=== PATIENT | female | born 1945 | race Caucasian/White ===

== ENCOUNTER 2023-05-27 09:10 | Outpatient (AMB) | payer MEDICARE, SELFPAY ==
[2023-05-27 09:15] VITALS: BP 134/70; PULSE 57; O2SAT 97; BMI 29.2
--- NOTE | 2023-05-27 09:15 | A.OFFVIS_ITS ---
Intake Vital Signs 3 05/27/23 09:15 Height 5 ft 4 in Weight 170 lb BMI 29.2 BP 134/70 Blood Pressure Location Lt brachial Position Sitting Pulse 57 Pulse Source Pulse Oximeter Pulse Oximetry (%) 97 Oxygen Delivery Method Room Air Intake Visit Reasons: Abnormal CT Chest Primary Special Education Teacher Required: No Allergies No Known Allergies Allergy (Verified 05/27/23 09:18) HPI HPI Comments 2 History of Present Illness0 Details The patient is here for pulmonary evaluation. The patient is a 77-year-old woman presenting with a CT scan of the chest. The patient is a former smoker. She smoked for many years. Initially back around 5-6 years ago the patient was participating in the lung cancer screening program at [facility]. She had multiple pulmonary nodules. I personally reviewed her CT scan from 2020. It appeared that she had small pulmonary nodules. But nothing in the left upper lobe area where the concern is now. The patient then followed up with her primary care doctor in decided to continue the CT scans elsewhere. She was then referred to the [facility]. There she did have a CT scan sometime in February 2023 which I personally reviewed. Now she has a larger 2 cm irregular nodular density in the left upper lobe area adjacent to the aortic arch. This finding was not present on her CT scan from 2020. The patient ultimately had a repeat CT scan now May 2022 which I personally reviewed as well in appears that the irregular nodular density seems to be just slightly bigger. Although I explained to her that the timeframe on 3 months sometimes is not enough time to see the significant evolution. The patient does have a family history of lung cancer in the family is her sister recently from lung cancer. In addition to that she does have a significant smoking history. Therefore, I am concerned about this irregular nodular density in the left upper lobe area. I do believe a PET scan will be necessary to better address this abnormal finding. Specially since his in a difficult location for biopsy. Is very centrally located difficult to reach with a CT-guided biopsy and also very difficult to reach with a bronchoscopy. [facility] Medical History (Updated 05/27/23 @ 16:49 by Filiberto Mojica MD) COPD (chronic obstructive pulmonary disease) Pulmonary nodule 1 cm or greater in diameter Social History (Updated 05/27/23 @ 09:23 by DIANDRA Cedeno) Patient Tobacco Use Status: Former Tobacco user Tobacco use type: Cigarette Years Smoked: 40+ Years Review of Systems Const Reports excessive sweating, Denies fever(s) and Reports night sweats ENT Reports nasal congestion Card Denies chest pain and Reports dyspnea on exertion Resp Reports cough, Reports dyspnea on exertion and Denies wheezing GI Reports no additional complaints Musc Reports no additional complaints Skin/Breast Denies rash Endo Reports excessive sweating Luis/Lymph Denies easy bruising Aller/Immun Denies wheezing Physical Exam Vital Signs: Last Vital Signs Pulse 57 05/27/23 09:15 BP 134/70 05/27/23 09:15 Pulse Ox 97 05/27/23 09:15 Oxygen Delivery Method Room Air 05/27/23 09:15 BMI result Body Mass Index 29.2 Const General: comfortable HEENT Head: Yes normocephalic Neck Neck: Yes supple Chest Chest palpation & inspection: normal inspection of the chest Resp Effort & Inspection: normal respiratory effort Auscultation: clear to auscultation bilaterally Cardio Heart sounds: S1 normal heart sound present and S2 normal heart sound present GI Palpation (GI): Soft to palpation Skin General skin exam: no rashes or lesions noted Extrem General: Yes no clubbing, cyanosis or edema Results Reviewed Results Reviewed: Assessment & Plan Assessment & Plan (1) Pulmonary nodule 1 cm or greater in diameter: Code(s): R91.1 - Solitary pulmonary nodule (2) COPD (chronic obstructive pulmonary disease): Code(s): J44.9 - Chronic obstructive pulmonary disease, unspecified Qualifiers: COPD type: emphysema Emphysema type: centrilobular Qualified Code(s): J43.2 - Centrilobular emphysema Plan PFTs at [facility] PET scan at [facility] F/U 2-3 months Orders: Orders 2 PFT pulmonary function test Today J44.9 - Chronic obstructive pulmonary disease, unspecified, R91.1 - Solitary pulmonary nodule PET CT fusion skull to thigh Today J44.9 - Chronic obstructive pulmonary disease, unspecified, R91.1 - Solitary pulmonary nodule Coding Level of Care Code New Pt Level 4 (18642) Diagnoses Pulmonary nodule 1 cm or greater in diameter R91.1 Centrilobular emphysema J43.2 COPD type: emphysema Emphysema type: centrilobular Time Spent (min) 40
== END 2023-05-27 09:53 | disposition home or self-care (01) ==
PROVIDERS: PCP Physician Assistant Medical; Visit Provider Hospitalist
DX: R91.1 Solitary pulmonary nodule (principal); J43.2 Centrilobular emphysema
CPT/HCPCS: 99204

== ENCOUNTER → 2023-05-27 09:10 | Outpatient (BNVA) | payer MEDICARE, SELFPAY | PROVIDERS: PCP Physician Assistant Medical; Visit Provider Hospitalist | DX: R91.1 Solitary pulmonary nodule (principal); J43.2 Centrilobular emphysema | CPT/HCPCS: 99202 ==

== ENCOUNTER 2023-09-26 09:56 | Outpatient (AMB) | payer MEDICARE, SELFPAY ==
[2023-09-26 10:08] VITALS: BP 126/60; PULSE 60; O2SAT 96; BMI 29.2
--- NOTE | 2023-09-26 10:08 | A.OFFVIS_ITS ---
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 The patient is a former smoker. She smoked for many years. Initially back around 5-6 years ago the patient was participating in the lung cancer screening program at [facility]. She had multiple pulmonary nodules. I personally reviewed her CT scan from 2020. It appeared that she had small pulmonary nodules. But nothing in the left upper lobe area where the concern is now. The patient then followed up with her primary care doctor in decided to continue the CT scans elsewhere. She was then referred to the [facility]. There she did have a CT scan sometime in February 2023 which I personally reviewed. Now she has a larger 2 cm irregular nodular density in the left upper lobe area adjacent to the aortic arch. This finding was not present on her CT scan from 2020. The patient ultimately had a repeat CT scan now May 2022 which I personally reviewed as well in appears that the irregular nodular density seems to be just slightly bigger. Although I explained to her that the timeframe on 3 months sometimes is not enough time to see the significant evolution. The patient does have a family history of lung cancer in the family is her sister recently from lung cancer. In addition to that she does have a significant smoking history. Therefore, I am concerned about this irregular nodular density in the left upper lobe area. I do believe a PET scan will be necessary to better address this abnormal finding. Specially since his in a difficult location for biopsy. Is very centrally located difficult to reach with a CT- guided biopsy and also very difficult to reach with a bronchoscopy. 09/26/2023 the patient is here for a pulmonary follow-up visit. The patient is otherwise doing well from a respiratory status. She did follow-up with thoracic surgery after her PET scan. She did undergo a CT-guided biopsy although it was nondiagnostic. She demonstrating chronic inflammatory changes. She was evaluated by thoracic surgery and still felt that is a tough air even as with a surgical approach. In view of the findings and the limited results in the pathology she is scheduled to undergo a repeat CT scan next week. I will plan to look at and give her a call. Otherwise she continues with current respiratory therapy. She is having some leg cramping therefore I did tell her to hold the Wixela for a week or so in order for the cramping to settle. In the meantime she is going to try some prednisone for 4 days prior to the CT scan to see if we see some improvement in the nodular density if it is an inflammatory process. [facility] Medical History (Updated 05/27/23 @ 16:49 by Filiberto Mojica MD) COPD (chronic obstructive pulmonary disease) Pulmonary nodule 1 cm or greater in diameter Social History (Updated 05/27/23 @ 09:23 by DIANDRA Cedeno) Patient Tobacco Use Status: Former Tobacco user Tobacco use type: Cigarette Years Smoked: 40+ Years Review of Systems Const Reports excessive sweating, Denies fever(s) and Reports night sweats ENT Reports nasal congestion Card Denies chest pain and Reports dyspnea on exertion Resp Reports cough, Reports dyspnea on exertion and Denies wheezing GI Reports no additional complaints Musc Reports no additional complaints Skin/Breast Denies rash Endo Reports excessive sweating Luis/Lymph Denies easy bruising Aller/Immun Denies wheezing Physical Exam Vital Signs: Last Vital Signs Pulse 60 09/26/23 10:08 BP 126/60 09/26/23 10:08 Pulse Ox 96 09/26/23 10:08 Oxygen Delivery Method Room Air 09/26/23 10:08 BMI result Body Mass Index 29.2 Const General: comfortable HEENT Head: Yes normocephalic Neck Neck: Yes supple Chest Chest palpation & inspection: normal inspection of the chest Resp Effort & Inspection: normal respiratory effort Auscultation: clear to auscultation bilaterally Cardio Heart sounds: S1 normal heart sound present and S2 normal heart sound present GI Palpation (GI): Soft to palpation Skin General skin exam: no rashes or lesions noted Extrem General: Yes no clubbing, cyanosis or edema Assessment & Plan Assessment & Plan (1) Pulmonary nodule 1 cm or greater in diameter: Code(s): R91.1 - Solitary pulmonary nodule Category: Medical (2) COPD (chronic obstructive pulmonary disease): Code(s): J44.9 - Chronic obstructive pulmonary disease, unspecified Category: Medical Qualifiers: COPD type: emphysema Emphysema type: centrilobular Qualified Code(s): J43.2 - Centrilobular emphysema Plan PFTs at [facility] PET scan at [facility] F/U 2-3 months Medications: New prednisone PO daily; Take 2 tabs daily x 4 4 days 8 tabs 0RF Coding Level of Care Code Est Pt Level 4 (94336) Diagnoses Pulmonary nodule 1 cm or greater in diameter R91.1 Centrilobular emphysema J43.2 COPD type: emphysema Emphysema type: centrilobular Time Spent (min) 17
== END 2023-09-26 10:41 | disposition home or self-care (01) ==
PROVIDERS: PCP Physician Assistant Medical; Visit Provider Hospitalist
DX: R91.1 Solitary pulmonary nodule (principal); J43.2 Centrilobular emphysema
CPT/HCPCS: 99214

== ENCOUNTER → 2023-09-26 09:56 | Outpatient (BNVA) | payer MEDICARE, SELFPAY | PROVIDERS: PCP Physician Assistant Medical; Visit Provider Hospitalist | DX: J44.9 Chronic obstructive pulmonary disease, unspecified (principal); R91.1 Solitary pulmonary nodule; J43.2 Centrilobular emphysema; Z87.891 Personal history of nicotine dependence | CPT/HCPCS: 99212 ==

== ENCOUNTER 2023-12-30 09:59 | Outpatient (AMB) | payer MEDICARE, SELFPAY ==
--- NOTE | 2023-12-30 10:15 | MHC.OFFVIS ---
Vital Signs 12/30/23 10:16 Height 5 ft 4 in Weight 172 lb BMI 29.5 BP 128/60 Blood Pressure Location Lt brachial Position Sitting Pulse 61 Pulse Source Pulse Oximeter Pulse Oximetry (%) 94 Oxygen Delivery Method Room Air Intake Visit Reasons: Pulmonary Nodule Hide Salter Required: No Allergies No Known Allergies Allergy (Verified 12/30/23 10:15) HPI Comments Details: The patient is a 78-year-old woman presenting with a CT scan of the chest. The patient is a former smoker. She smoked for many years. Initially back around 5-6 years ago the patient was participating in the lung cancer screening program at [facility]. She had multiple pulmonary nodules. I personally reviewed her CT scan from 2020. It appeared that she had small pulmonary nodules. But nothing in the left upper lobe area where the concern is now. The patient then followed up with her primary care doctor in decided to continue the CT scans elsewhere. She was then referred to the [facility]. There she did have a CT scan sometime in February 2023 which I personally reviewed. Now she has a larger 2 cm irregular nodular density in the left upper lobe area adjacent to the aortic arch. This finding was not present on her CT scan from 2020. The patient ultimately had a repeat CT scan now May 2022 which I personally reviewed as well in appears that the irregular nodular density seems to be just slightly bigger. Although I explained to her that the timeframe on 3 months sometimes is not enough time to see the significant evolution. The patient does have a family history of lung cancer in the family is her sister recently from lung cancer. In addition to that she does have a significant smoking history. Therefore, I am concerned about this irregular nodular density in the left upper lobe area. I do believe a PET scan will be necessary to better address this abnormal finding. Specially since his in a difficult location for biopsy. Is very centrally located difficult to reach with a CT-guided biopsy and also very difficult to reach with a bronchoscopy. 09/26/2023 the patient is here for a pulmonary follow-up visit. The patient is otherwise doing well from a respiratory status. She did follow-up with thoracic surgery after her PET scan. She did undergo a CT-guided biopsy although it was nondiagnostic. She demonstrating chronic inflammatory changes. She was evaluated by thoracic surgery and still felt that is a tough air even as with a surgical approach. In view of the findings and the limited results in the pathology she is scheduled to undergo a repeat CT scan next week. I will plan to look at and give her a call. Otherwise she continues with current respiratory therapy. She is having some leg cramping therefore I did tell her to hold the Wixela for a week or so in order for the cramping to settle. In the meantime she is going to try some prednisone for 4 days prior to the [address] scan to see if we see some improvement in the nodular density if it is an inflammatory process. 12/30/2023 the patient is here for a pulmonary follow-up visit. Since we last spoke the patient did follow-up with thoracic surgery [facility]. I believe she is scheduled to undergo a repeat CT scan for the pulmonary nodule in March or so. In the meantime she has been describing right-sided pleuritic chest discomfort. Moderate to severe. She could not sleep last night. She was called the ambulance. But she did not want to go because she did not want her weight. She is also complaining of some shortness of breath. She denies any history of blood clots. Denies any swelling of her legs. Denies any injury to her chest. On palpation she does have some pain in the costochondral joints. Although at this point will go ahead and have her get blood work including a D-dimer. If his elevated then will have to order a CTA to rule out thromboembolic disease. The patient is high risk. She is not taking any blood thinners at this time. [facility] Medical History (Updated 12/30/23 @ 10:25 by Filiberto Mojica MD) Pleuritic chest pain COPD (chronic obstructive pulmonary disease) Pulmonary nodule 1 cm or greater in diameter Social History (Updated 05/27/23 @ 09:23 by DINADRA Cedeno) Patient Tobacco Use Status: Former Tobacco user Tobacco use type: Cigarette Years Smoked: 40+ Years Review of Systems Const Reports excessive sweating, Denies fever(s) and Reports night sweats ENT Reports nasal congestion Card Reports chest pain and Reports dyspnea on exertion Resp Reports cough, Reports pain on inspiration, Reports pain with cough, Reports dyspnea on exertion and Denies wheezing GI Reports no additional complaints Musc Reports no additional complaints Skin/Breast Denies rash Endo Reports excessive sweating Luis/Lymph Denies easy bruising Aller/Immun Denies wheezing Physical Exam Vital Signs: Last Vital Signs Pulse 61 12/30/23 10:16 BP 128/60 12/30/23 10:16 Pulse Ox 94 12/30/23 10:16 Oxygen Delivery Method Room Air 12/30/23 10:16 BMI result Body Mass Index 29.5 Const General: comfortable HEENT Head: Yes normocephalic Neck Neck: Yes supple Chest Chest palpation & inspection: tenderness costochondral junction Resp Effort & Inspection: normal respiratory effort Auscultation: clear to auscultation bilaterally Cardio Heart sounds: S1 normal heart sound present and S2 normal heart sound present GI Palpation (GI): Soft to palpation Skin General skin exam: no rashes or lesions noted Extrem General: Yes no clubbing, cyanosis or edema Assessment & Plan Assessment & Plan (1) Pulmonary nodule 1 cm or greater in diameter: Code(s): R91.1 - Solitary pulmonary nodule Category: Medical (2) COPD (chronic obstructive pulmonary disease): Code(s): J44.9 - Chronic obstructive pulmonary disease, unspecified Category: Medical Qualifiers: COPD type: emphysema Emphysema type: centrilobular Qualified Code(s): J43.2 - Centrilobular emphysema (3) Pleuritic chest pain: Code(s): R07.81 - Pleurodynia Category: Medical Plan bloodwork, ddimer +, will need a CTA to r/o PE EKG NSAIDS as needed F/U 4-6 months Orders: Orders Venous Blood Gas Today R07.81 - Pleurodynia, R91.1 - Solitary pulmonary nodule CT angio chest PE protocol Today R07.81 - Pleurodynia, R79.89 - Other specified abnormal findings of blood chemistry Complete Blood Count Auto Diff Today R07.81 - Pleurodynia, R91.1 - Solitary pulmonary nodule Basic Metabolic Panel Today R07.81 - Pleurodynia, R91.1 - Solitary pulmonary nodule Erythrocyte Sedimentation Rate Today R07.81 - Pleurodynia, R91.1 - Solitary pulmonary nodule D Dimer High Sensitivity Today R07.81 - Pleurodynia, R91.1 - Solitary pulmonary nodule Liver Panel Today R07.81 - Pleurodynia, R91.1 - Solitary pulmonary nodule Troponin-I High Sensitivity Today R07.81 - Pleurodynia, R91.1 - Solitary pulmonary nodule ECG 12 lead EKG Today J44.9 - Chronic obstructive pulmonary disease, unspecified, R07.81 - Pleurodynia Coding Level of Care Code Est Pt Level 4 (60372) Complex EM visit Add On G2211 Diagnoses Pulmonary nodule 1 cm or greater in diameter R91.1 Centrilobular emphysema J43.2 COPD type: emphysema Emphysema type: centrilobular Pleuritic chest pain R07.81 Time Spent (min) 17
[2023-12-30 10:16] VITALS: BP 128/60; PULSE 61; O2SAT 94; BMI 29.5
== END 2023-12-30 10:33 | disposition home or self-care (01) ==
PROVIDERS: PCP Physician Assistant Medical; Visit Provider Hospitalist
DX: R91.1 Solitary pulmonary nodule (principal); J43.2 Centrilobular emphysema; R07.81 Pleurodynia
CPT/HCPCS: 99214; G2211

== ENCOUNTER → 2023-12-30 09:59 | Outpatient (REF) | payer MEDICARE, SELFPAY ==
--- NOTE | 2023-12-30 10:49 | ECG_ITS ---
Test Reason : COPD Blood Pressure : / mmHG Vent. Rate : 056 BPM Atrial Rate : 056 BPM P-R Int : 208 ms QRS Dur : 074 ms QT Int : 428 ms P-R-T Axes : 078 019 032 degrees QTc Int : 413 ms Sinus bradycardia Otherwise normal ECG No previous ECGs available Referred By: Filiberto Mojica Electronically Signed By:Thanh Almeida
[2023-12-30 11:25] LABS: MANUAL DIFF FLAG NO
[2023-12-30 11:35] LABS: Venous Blood Gas Refer to POC result
[2023-12-30 11:36] LABS: VBG Base Excess 5.3 mmol/L; VBG HCO3 31 mmol/L (22-26); VBG pCO2 50 mmHg; VBG pH 7.39 (7.32-7.43); VBG pO2 33 mmHg
[2023-12-30 11:42] LABS: Basophils Absolute Auto 0.1 X10*3/uL (0.0-0.2); Basophils Percent Auto 0.7 % (0-2); Eosinophils Absolute Auto 0.1 X10*3/uL (0.0-0.4); Eosinophils Percent Auto 1.6 % (0-4); Hematocrit 35.5 % (37.0-47.0); Hemoglobin 11.7 g/dl (12.0-16.0); Imm Gran Abs Auto 0.03 X10*3/uL (0.00-0.03); Imm Gran Pct Auto 0.4 % (0.0-0.4); Lymphocytes Absolute Auto 1.1 X10*3/uL (1.2-4.9); Lymphocytes Percent Auto 16.4 % (20-40); Mean Corpuscular Hemoglobin 29.5 pg (27.0-33.0); Mean Corpuscular Volume 89.6 fL (80.0-98.0); Mean Platelet Volume 9.8 fL (9.4-12.3); Monocytes Absolute Auto 0.4 X10*3/uL (0.1-1.2); Monocytes Percent Auto 6.5 % (2-11); Neutrophils Percent Auto 74.4 % (45-73); Platelet Count 189 X10*3/uL (160-400); Red Blood Count 3.96 X10*6/uL (4.20-5.50); Red Cell Distribution Width 12.8 % (11.0-16.0); White Blood Count 6.8 X10*3/uL (4.8-10.8)
[2023-12-30 11:44] LABS: D Dimer High Sensitivity 377 NG/ML
[2023-12-30 12:24] LABS: Alanine Aminotransferase 22 U/L (0-31); Albumin Level 4.2 g/dL (3.5-5.0); Alkaline Phosphatase 83 U/L (39-117); Anion Gap 8 (12-20); Aspartate Amino Transferase 29 U/L (5-31); Bilirubin Direct 0.2 mg/dL (0.0-0.5); Bilirubin Total 0.6 mg/dL (0.0-1.0); Blood Urea Nitrogen 14 mg/dL (9-16); Calcium 10.3 mg/dL (8.4-10.2); Carbon Dioxide 31 mmol/L (22-29); Chloride 101 mmol/L (96-108); Estimated Glomerular Filt Rate > 60; Glucose Random 100 mg/dL (60-115); Potassium 4.1 mmol/L (3.3-5.1); Sodium 136 mmol/L (135-145)
[2023-12-30 12:41] LABS: Erythrocyte Sedimentation Rate 25 MM/HR (0-20)
== END ==
LOC: HO.CARD 09:59
PROVIDERS: PCP Physician Assistant Medical; Visit Provider Hospitalist
DX: R07.81 Pleurodynia (principal); R91.1 Solitary pulmonary nodule; J44.9 Chronic obstructive pulmonary disease, unspecified
CPT/HCPCS: 36415; 80048; 80076; 82803; 84484; 85025; 85379; 85652; 93005; 99212

== ENCOUNTER → 2023-12-30 10:49 | Outpatient (BNV) | payer MEDICARE, SELFPAY | PROVIDERS: PCP Physician Assistant Medical; Visit Provider Internal Medicine Cardiovascular Disease | DX: R00.1 Bradycardia, unspecified (principal) | CPT/HCPCS: 93010 ==

== ENCOUNTER 2023-12-30 14:39 | Outpatient (REF) | payer MEDICARE, SELFPAY ==
--- NOTE | ~2023-12-30 | CT_ITS ---
EXAMINATION: CT ANGIOGRAM CHEST CLINICAL INFORMATION: Chest pain COMPARISON: None available. TECHNIQUE: Multiple axial images were obtained through the chest after the administration of 65 mL of Omnipaque 350 intravenous contrast. Extensive vascular post-processing including two-dimensional and three-dimensional reformatted images were created and reviewed on an independent workstation. This CT examination was performed using dose optimization techniques as appropriate, variously including the following: *Automated exposure control *Adjustment of mA and/or kV according to patient size (this includes techniques or standardized protocols for targeted exams where dose is matched to indication/reason for exam; i.e. extremities or head) *Use of iterative reconstruction technique DLP: 244 mGy-cm FINDINGS: Heart size normal. No pericardial effusion. There is normal contrast enhancement of the great vessels of the mediastinum including the main, right and left pulmonary artery. No CT evidence for acute PE. Atherosclerotic changes seen within the aorta but no dissection or aneurysm. Moderate coronary artery calcifications are noted. No evidence for significant adenopathy in the mediastinum. There is no evidence for right heart strain. Lungs are hyperaerated, but grossly clear with only minimal bibasilar atelectasis right greater than left. No suspicious nodules or masses or consolidations. No pneumothorax. Images through the upper abdomen show no evidence for elevated right-sided heart pressure. 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 There is mild kyphosis in the thoracic spine with spondylitic change but no fracture or destructive process. The sternum is intact. CT/CT angio chest PE protocol IMPRESSION: COPD. No active disease. No evidence for acute PE. VTE: Negative Fleischner guidelines were followed. Electronically signed by: Agustin Walker MD 12/31/2023 10:53 AM EDT
[2023-12-30] MEDS: iohexoL 350 MG/ML 100 ML INFUS..BTL IV (15:23)
== END 2023-12-30 14:40 | disposition home or self-care (01) ==
LOC: HO.CT 14:39
PROVIDERS: PCP Physician Assistant Medical; Visit Provider Hospitalist
DX: R07.81 Pleurodynia (principal); R79.89 Other specified abnormal findings of blood chemistry
CPT/HCPCS: 71275; Q9967

== ENCOUNTER 2024-04-21 10:08 | Outpatient (AMB) | payer MEDICARE, SELFPAY ==
--- NOTE | 2024-04-21 10:11 | A.OFFVIS_ITS ---
Vital Signs 04/21/24 10:15 Height 5 ft 4 in Weight 171 lb 15.369 oz BMI 29.5 BP 126/68 Blood Pressure Location Rt brachial Position Sitting Pulse 67 Pulse Source Pulse Oximeter Pulse Oximetry (%) 97 Oxygen Delivery Method Room Air Intake Visit Reasons: Pulmonary Nodule Allergies No Known Allergies Allergy (Verified 04/21/24 10:20) HPI Comments Details: The patient is a 78-year-old woman presenting with a CT scan of the chest. The patient is a former smoker. She smoked for many years. Initially back around 5-6 years ago the patient was participating in the lung cancer screening program at [facility]. She had multiple pulmonary nodules. I personally reviewed her CT scan from 2020. It appeared that she had small pulmonary nodules. But nothing in the left upper lobe area where the concern is now. The patient then followed up with her primary care doctor in decided to continue the CT scans elsewhere. She was then referred to the [facility]. There she did have a CT scan sometime in February 2023 which I personally reviewed. Now she has a larger 2 cm irregular nodular density in the left upper lobe area adjacent to the aortic arch. This finding was not present on her CT scan from 2020. The patient ultimately had a repeat CT scan now May 2022 which I personally reviewed as well in appears that the irregular nodular density seems to be just slightly bigger. Although I explained to her that the timeframe on 3 months sometimes is not enough time to see the significant evolution. The patient does have a family history of lung cancer in the family is her sister recently from lung cancer. In addition to that she does have a significant smoking history. Therefore, I am concerned about this irregular nodular density in the left upper lobe area. I do believe a PET scan will be necessary to better address this abnormal finding. Specially since his in a difficult location for biopsy. Is very centrally located difficult to reach with a CT- guided biopsy and also very difficult to reach with a bronchoscopy. 09/26/2023 the patient is here for a pulmonary follow-up visit. The patient is otherwise doing well from a respiratory status. She did follow-up with thoracic surgery after her PET scan. She did undergo a CT-guided biopsy although it was nondiagnostic. She demonstrating chronic inflammatory changes. She was evaluated by thoracic surgery and still felt that is a tough air even as with a surgical approach. In view of the findings and the limited results in the pathology she is scheduled to undergo a repeat CT scan next week. I will plan to look at and give her a call. Otherwise she continues with current respiratory therapy. She is having some leg cramping therefore I did tell her to hold the Wixela for a week or so in order for the cramping to settle. In the meantime she is going to try some prednisone for 4 days prior to the CT scan to see if we see some improvement in the nodular density if it is an inflammatory process. 12/30/2023 the patient is here for a pulmonary follow-up visit. Since we last spoke the patient did follow-up with thoracic surgery [facility]. I believe she is scheduled to undergo a repeat CT scan for the pulmonary nodule in March or so. In the meantime she has been describing right-sided pleuritic chest discomfort. Moderate to severe. She could not sleep last night. She was called the ambulance. But she did not want to go because she did not want her weight. She is also complaining of some shortness of breath. She denies any history of blood clots. Denies any swelling of her legs. Denies any injury to her chest. On palpation she does have some pain in the costochondral joints. Although at this point will go ahead and have her get blood work including a D- dimer. If his elevated then will have to order a CTA to rule out thromboembolic disease. The patient is high risk. She is not taking any blood thinners at this time. 04/21/2024 the patient is here for a pulmonary follow-up visit. Overall she is doing well. She denies any shortness of breath denies any wheezing or coughing. She however has been having issues with significant Shiley hoarseness muscle pains. She has started taking quinine that she bought online. Although I explained to her that because she takes medications that can interact with the medication she needs to be extremely careful. For example explained to her that she takes an SSRI that can result in increased cardiac arrhythmias and she also takes a high dose of Lipitor and that can also cause increased level some that statin medication. Therefore, she is going to talk to her primary care doctor about making some medication changes. For now I did caution her about the use of quinine. In the meantime though she does Wixela that she takes daily. This can also cause potassium she was in muscle spasms. So based on the fact that her breathing is stable she can go ahead and stop that for now. If her breathing gets worse she can always call and we can talk about it further. As far as imaging studies she did have a CT scan of the chest not too long ago at [facility] which I personally reviewed with her. Her pulmonary nodules are stable she does have some areas of ground-glass opacities primarily at the left base that appear to be more like atelectasis if not a little bit of pneumonitis. But is minimal and is not concerning at this time. Therefore the provide her with an incentive spirometer so she can work on deep breathing exercises and she will follow-up in 6 months. If she has any worsening issues prior to that she will call for an earlier assessment. [facility] Medical History (Updated 04/21/24 @ 18:27 by Filiberto Mojica MD) Muscle ache of extremity Pleuritic chest pain COPD (chronic obstructive pulmonary disease) Pulmonary nodule 1 cm or greater in diameter Social History Patient Tobacco Use Status: Former Tobacco user Tobacco use type: Cigarette Years Smoked: 40+ Years Review of Systems Const Denies fever(s) ENT Reports nasal congestion Card Reports chest pain and Reports dyspnea on exertion Resp Reports cough, Reports dyspnea on exertion and Denies wheezing GI Reports no additional complaints Musc Reports no additional complaints Skin/Breast Denies rash Luis/Lymph Denies easy bruising Aller/Immun Denies wheezing Physical Exam Vital Signs: Last Vital Signs Pulse 67 04/21/24 10:15 BP 126/68 04/21/24 10:15 Pulse Ox 97 04/21/24 10:15 Oxygen Delivery Method Room Air 04/21/24 10:15 BMI result Body Mass Index 29.5 Const General: comfortable HEENT Head: Yes normocephalic Neck Neck: Yes supple Chest Chest palpation & inspection: normal inspection of the chest Resp Effort & Inspection: normal respiratory effort Auscultation: clear to auscultation bilaterally Cardio Heart sounds: S1 normal heart sound present and S2 normal heart sound present GI Palpation (GI): Soft to palpation Skin General skin exam: no rashes or lesions noted Extrem General: Yes no clubbing, cyanosis or edema Assessment & Plan Assessment & Plan (1) Pulmonary nodule 1 cm or greater in diameter: Code(s): R91.1 - Solitary pulmonary nodule Category: Medical (2) COPD (chronic obstructive pulmonary disease): Code(s): J44.9 - Chronic obstructive pulmonary disease, unspecified Category: Medical Qualifiers: COPD type: emphysema Emphysema type: centrilobular Qualified Code(s): J43.2 - Centrilobular emphysema (3) Muscle ache of extremity: Code(s): M79.18 - Myalgia, other site Category: Medical Plan stop Wixela SINDY as [place] [facility] with stable nodules, new LLL GGO ?atelectasis versus minimal pneumonitis ISS sleep with HOB elevated F/U 8-12 months Coding Level of Care Code Est Pt Level 4 (11594) Complex EM visit Add On G2211 Diagnoses Pulmonary nodule 1 cm or greater in diameter R91.1 Centrilobular emphysema J43.2 COPD type: emphysema Emphysema type: centrilobular Muscle ache of extremity M79.18 Time Spent (min) 18
[2024-04-21 10:15] VITALS: BP 126/68; PULSE 67; O2SAT 97; BMI 29.5
--- OUTSIDE RECORDS SUMMARY | 2024-04-21 11:59 | XMS_ITS | Encounter Summary ---
Author Organization [facility] Address [address] [place] [address] Care Team Providers Care Fishing Hand Name Role Phone Inocencia Hdez PA-C Primary Care Provi christopher Encounter Details Date Type Department Care Team (Late Contact Info) Description 10/07/2023 Scanned Document [facility] [address] [place] [phone] Inocencia Hdez PA-C [address] [phone] Social History Tobacco Use Types Packs/Day Years Used Date Smoking Tobacco: Former Cigarettes 2 35 1 968 - 2003 Smokeless Tobacco: Never Alcohol Use Standard Drinks/Week Comments Not Currently 0 (1 standard drink = 0.6 oz pur e alcohol) PHQ-2 Answer Date Recorded PHQ-2 Total Score 2 06/09/2023 Sex and Gender Information Value Date Recorded Sex Assigned at Not on file Gender Identity Not on file Sexual Orientation Not on file documented as of this encounter Plan of Treatment Upcoming Encounters Date Type Department Care Team (Late Contact Info) Description 08/03/2024 9:00 AM EDT Office Visit [facility] 100 [facility] [address] [place] [phone] Inocencia Hdez PA-C [address] [place], [place] [phone] documented as of this encounter Visit Diagnoses Not on filedocumented in this encounter Care Teams Fishing Hand Relationship Specialty Start Date End Date Inocencia Hdez PA-C [address] [place] [address] PCP - General Internal Medicine 06/07/23 Delores Julio MD [facility] Physician Surgery, Vascular 05/06/23 Gregory Pollard MD Physician Endocrinology 05/06/23 Emelia Tobar Physician Gastroenterology 05/06/23 documented as of this encounter
--- OUTSIDE RECORDS SUMMARY | 2024-04-21 11:59 | XMS_ITS | Encounter Summary ---
Author Organization [facility] Address [address] [place] [address] Care Team Providers Care Ob Scrub Tech Name Role Phone Inocencia Hdez PA-C Primary Care Provi christopher Encounter Details Date Type Department Care Team (Late st Contact Info) Description 01/01/2024 Scanned Document [facility] [address] [place] [address] Pulmonary, Scan Social History Tobacco Use Types Packs/Day Years Used Date Smoking Tobacco: Former Cigarettes 2 35 1 968 - 2002 Smokeless Tobacco: Never Alcohol Use Standard Drinks/Week [...] Encounters Date Type Department Care Team (Late st Contact Info) Description 08/03/2024 9:00 AM EDT Office Visit [address] [phone] Inocencia Hdez PA-C [address] [place] [address] documented as of this encounter Visit Diagnoses Not on filedocumented in this encounter Care Teams Ob Scrub Tech Relationship Specialty Start Date End Date Inocencia Hdez PA-C [address] [place] [address] PCP - General Internal Medicine 06/07/23 Delores Julio MD [facility] Physician Surgery, Vascular 05/06/23 Gregory Pollard MD Physician Endocrinology 05/06/23 Emelia Tobar Physician Gastroenterology 05/06/23 documented as of this encounter
--- OUTSIDE RECORDS SUMMARY | 2024-04-21 11:59 | XMS_ITS | Encounter Summary ---
Author Organization [facility] Address [address] [place] [address] Care Team Providers Care Spray Rig Operator Name Role Phone Inocencia Hdez PA-C Primary Care Provi christopher Encounter Details Date Type Department Care Team (Late Contact Info) Description 10/07/2023 Scanned Document [facility] [address] [place] [phone] Inocencia Hdez PA-C [address] [phone] Social History Tobacco Use Types Packs/Day Years [...] Description 08/03/2024 9:00 AM EDT Office Visit [facility] 100 [facility] [address] [place] [phone] Inocencia Hdez PA-C 100 [place], [place] [phone] documented as of this encounter Visit Diagnoses Not on filedocumented in this encounter Care Teams Spray Rig Operator Relationship Specialty Start Date End Date Inocencia Hdez PA-C [address] [place] [address] PCP - General Internal Medicine 06/07/23 Delores Julio MD [facility] [place] Physician Surgery, Vascular 05/06/23 Gregory Pollard MD Physician Endocrinology 05/06/23 Emelia Tobar Physician Gastroenterology 05/06/23 documented as of this encounter
--- OUTSIDE RECORDS SUMMARY | 2024-04-21 11:59 | XMS_ITS | Encounter Summary ---
Author Organization [facility] Address [address] [place] [address] Care Team Providers Care Ed Tech Name Role Phone Inocencia Hdez PA-C Primary Care Provi christopher Encounter Details Date Type Department Care Team (Late Contact Info) Description 10/07/2023 Scanned Document [facility] [address] [place] [phone] Inocencia Hdez PA-C [address] [phone] Social History Tobacco Use Types Packs/Day Years [...] Description 08/03/2024 9:00 AM EDT Office Visit [facility] 100 [facility] [address] [place] [phone] Inocencia Hdez PA-C [address] [place], [place] [phone] documented as of this encounter Visit Diagnoses Not on filedocumented in this encounter Care Teams Ed Tech Relationship Specialty Start Date End Date Inocencia Hdez PA-C [address] [place] [address] PCP - General Internal Medicine 06/07/23 Delores Julio [place] [facility] [place] Surgery, Vascular 05/06/23 Gregory Pollard MD Physician Endocrinology 05/06/23 Emelia Tobar Physician Gastroenterology 05/06/23 documented as of this encounter
--- OUTSIDE RECORDS SUMMARY | 2024-04-21 11:59 | XMS_ITS | Clinical Summary ---
Author Organization [facility] Address [address] [place] [address] Care Team Providers Care Pc Network Technician Name Role Phone Inocencia Hdez PA-C Primary Care Provi christopher Allergies No known active allergies Medications Medication Sig Dispensed Refills Start Date End Date Status Aspirin Low Dose 81 MG chewable tablet Chew 1 tablet (81 mg total) daily. chew and swallow 05/16/2023 Active levothyroxine (SYNTHROID, LEVOTHROID) 112 MCG tablet Take 1 tablet (112 mcg total) by mouth daily. 03/13/2023 Active calcium carbonate (OS-CHIP) 600 MG tablet Take 1 tablet (600 mg total) by mouth 2 times a day. Active LORazepam (ATIVAN) 0.5 MG tablet Take 1 tablet (0.5 mg total) by mouth nightly as needed. Active multivitamin Tab tablet Take 1 tablet by mouth daily. Active ascorbic acid (VITAMIN C) 500 MG tablet Take 1 tablet (500 mg total) by mouth daily. Active fluticasone-salmeter ol (ADVAIR) 250-50 mcg/inh diskus inhaler Inhale 1 puff twice daily (every 12 hours). 09/06/2023 Active losartan-hydroCHLORO thiazide (HYZAAR) 100-12.5 MG per tabletIndications:Pr imary hypertension Take 1 tablet by mouth daily. 90 tablet 3 10/15/2023 Active verapamil (VERELAN) 240 MG 24 hr capsuleIndications:P rimary hypertension Take 1 capsule (240 mg total) by mouth daily. 90 capsule 1 11/28/2023 Active metoPROLOL SUCCINATE (TOPROL-XL) 25 MG 24 hr tabletIndications:Pr imary hypertension TAKE ONE TABLET BY MOUTH EVERY DAY 90 tablet 1 12/19/2023 Active ezetimibe (ZeTIA) 10 MG tabletIndications:Ot her hyperlipidemia TAKE ONE TABLET BY MOUTH EVERY DAY 90 tablet 1 12/19/2023 Active mirtazapine (REMERON) 7.5 MG tabletIndications:An xiety Take 1 tablet (7.5 mg total) by mouth nightly. 30 tablet 1 01/27/2024 Active escitalopram (LEXAPRO) 20 MG tabletIndications:An xiety Take 1 tablet (20 mg total) by mouth daily. 90 tablet 3 02/12/2024 Active atorvastatin (LIPITOR) 80 MG tabletIndications:Hy perlipidemia, unspecified hyperlipidemia type TAKE ONE TABLET BY MOUTH EVERY DAY 90 tablet 1 03/27/2024 Active atorvastatin (LIPITOR) 80 MG tabletIndications:Hy perlipidemia, unspecified hyperlipidemia type Take 1 tablet (80 mg total) by mouth daily. 90 tablet 1 09/30/2023 Discontinued Active Problems Problem Noted Date Diagnosed Date Mild aortic stenosis 06/08/2023 Overview (06/08/2023): ECHO 2021 Family history of colon cancer 06/08/2023 Overview (06/08/2023): Last colo 2017- was due 2022 Pulmonary nodule 06/07/2023 Emphysema of lung 06/07/2023 History of tobacco use 06/07/2023 HTN (hypertension) 06/07/2023 Major depressive disorder, r ecurrent episode, in partial remission 06/07/2023 Hypothyroidism 06/07/2023 Hyperlipidemia 06/07/2023 GERD (gastroesophageal reflux disease) Overview (06/08/2023): Last EGD 2018 IFG (impaired fasting glucose) 06/07/2023 Peripheral neuropathy 06/07/2023 Anxiety 06/07/2023 PAD (peripheral artery disease) 06/07/2023 Overview (06/09/2023): angioplasty and stenting of right SFA and AK popliteal 06/25/2022 for right sided short distance claudication. Follows with [facility] vascular. Encounters Date Type Department Care Team Description 04/13/2024 Scanned Document [facility] [address] [place] [address] Emergency Medicine, Scan 04/09/[address] [place] [phone] Inocencia Hdez PA-C 03/26/[address] [place] [phone] Inocencia Hdez PA-C Hyperlipidemia, unspecified hyperlipidemia type 02/25/[address] [place] [phone] Inocencia Hdez PA-C 02/24/2024 Scanned [facility] [address] [place] [address] Rheumatology, Scan 02/12/[address] [place] [phone] Inocencia Hdez PA-C Anxiety (Primary Dx) 02/02/[address] [place] [phone] Inocencia Hdez PA-C Referral 02/02/2024 Orders Only [address] [place] [phone] Inocencia Hdez PA-C 01/30/[address] [place] [address] Inocencia Hdez PA-C 01/28/2024 Orders Only [address] [phone] ProviderLaila MD 01/28/[address] [phone] Inocencia Hdez PA-C 01/28/2024 Telephone [facility] 100 [facility] [address] [place] [address] Inocencia Hdez PA-C 01/27/2024 10:15 AM EST Office Visit [facility] 100 [facility] [address] [place] [phone] Inocencia Hdez PA-C Primary hypertension (Primary Dx); Flu vaccine need; Anxiety; Urinary incontinence, unspecified type; Arthralgia of both hands; Heart murmur; Pulmonary nodule; Pulmonary emphysema, unspecified emphysema type (HCC); History of tobacco use; Major depressive disorder, recurrent episode, in partial remission (HCC); Acquired hypothyroidism; Other hyperlipidemia; Gastroesophageal reflux disease without esophagitis; IFG (impaired fasting glucose); Peripheral polyneuropathy; PAD (peripheral artery disease) (HCC); Mild aortic stenosis; Family history of colon cancer; Encounter for Medicare annual wellness exam 01/27/2024 Travel from Last 3 Months Immunizations Name Administration Dates Next Due Influenza High-Dose Trivalen t,(FLUZONE HIGH-DOSE), Perservative Free IM 0.5 mL 65 years and older 01/27/2024 Influenza Virus Trivalent Split Vaccine (MDV) IM 12/15/2019,11/21/2016 Influenza, Quadrivalent (FLU CELVAX) MDCK, Preservative Free IM 12/20/2022 Pneumococcal Conjugate 13-Valent 11/22/2014 Pneumococcal Polysaccharide 23-Valent 09/23/2008 Td 04/06/2010 Td, Unspecified 04/06/2010 Zoster Vaccine Live/Attenuated (Zostavax) 2008 Zoster Vaccine Recombinant (Shingrix) 10/28/2008 Social History Tobacco Use Types Packs/Day Years Used Date Smoking Tobacco: Former Cigarettes 2 35 1 968 - 2003 Smokeless Tobacco: Never Tobacco Cessation:Counseling Given: Not Answered Alcohol Use Standard Drinks/Week Comments Not Currently 0 (1 standard drink = 0.6 oz pur e alcohol) PHQ-2 Answer Date Recorded PHQ-2 Total Score 3 01/27/2024 Sex and Gender Information Value Date Recorded Sex Assigned at Not on file Gender Identity Not on file Sexual Orientation Not on file Last Filed Vital Signs Vital Sign Reading Time Taken Comments Blood Pressure 122/72 01/27/2024 10:10 AM EST Pulse 67 01/27/2024 10:10 AM EST Temperature 36.3 ??C (97.3 ??F) 01/27/2024 10:[address] Respiratory Rate 17 01/27/2024 10:10 AM EST Oxygen Saturation 98% 01/27/2024 10:10 AM EST Inhaled Oxygen Concentration - - Weight 77.7 kg (171 lb 3.2 oz) 01/27/2024 10:10 AM EST Height 162.6 cm (5' 4 ) 01/27/2024 10:10 AM EST Body Mass Index 29.39 01/27/2024 10:10 AM EST Plan of Treatment Upcoming Encounters Date Type Department Care Team (Late st Contact Info) Description 08/03/2024 9:00 AM EDT Office Visit [address] [address] Inocencia Hdez PA-C [address] [place] [address] Health Maintenance Due Date Last Done Comments Physical 06/03/1961 DXA Bone Density (Females,Ages 65 and older) 06/03/2008 Zoster (Shingles) Vaccine (3 of 3) 12/23/2008 10/28/2008, 10/28/2008 DTaP/Tdap/Td Vaccines (1 - Tdap) 04/07/2010 04/06/2010, 04/06/2010 RSV Vaccine 60 years and older and Patients (1 - 1-dose 75+ series) 06/03/2018 COVID-19 Vaccine (3 - season) 2023 07/13/2020, 06/22/2020 Annual Wellness Visit 01/27/2025 01/27/2024 Pneumococcal Vaccines 50+ Completed 11/22/2014, Influenza Vaccine Completed 01/27/2024, , 12/15/2019, Additional history exists Hepatitis B Vaccines Aged Out No long er eligible based on patient's age to complete this topic Procedures Procedure Name Priority Date/Time Associated Diagnosis Comments LAB RESULT Routine 01/28/2024 11:48 AM EST ECG 12-LEAD Routine 01/27/2024 10:34 AM EST Primary hypertension from Last 3 Months Results * LAB RESULT (01/28/2024 11:48 AM EST) External Provider MD GUNN AMB PROCEDURES * ECG 12 lead (01/27/2024 10:34 AM EST) 01/27/2024 10:3 4 AM EST Narrative Lobo Marroquin MA - 01/27/2024 10:34 AM EST EKG 64 bpm normal sinus rhythm Inocencia Hdez PA-C ECG ORDERAB LES from Last 3 Months Care Teams Pc Network Technician Relationship Specialty Start Date End Date Inocencia Hdez PA-C [address] [place] [address] PCP - General Internal Medicine 06/07/23 Delores Julio MD [facility] Physician Surgery, Vascular 05/06/23 Gregory Pollard MD Physician Endocrinology 05/06/23 Emelia Tobar Physician Gastroenterology 05/06/23
--- OUTSIDE RECORDS SUMMARY | 2024-04-21 11:59 | XMS_ITS | Encounter Summary ---
Author Organization [facility] Address [address] [place] [address] Care Team Providers Care Academic Associate Name Role Phone Pcp, No Primary Care Provider Inocencia Gilliland PA-C Primary Care Provi christopher Encounter Details Date Type Department Care Team (Late st Contact Info) Description 05/29/2023 Scanned Document [facility] PULMON[facility]GY SCAN Pulmonary, Scan Social History Tobacco Use Types Packs/Day Years Used Date Smoking Tobacco: Never Assessed Sex and Gender Information Value Date Recorded Sex Assigned at Not on file Gender Identity Not on file Sexual Orientation Not on file documented as of this encounter Plan of Treatment Upcoming Encounters Date Type Department Care Team (Late st Contact Info) Description 08/03/2024 9:00 AM EDT Office Visit [facility] 100 [facility] [address] [place] [phone] Inocencia Hdez PA-C 100 [place] [address] documented as of this encounter Visit Diagnoses Not on filedocumented in this encounter Care Teams Academic Associate Relationship Specialty Start Date End Date Pcp, No PCP - General General Medicine 04/08/23 06/06/23 Inocencia Hdez PA-C [address] [place] [address] PCP - General Internal Medicine 06/07/23 Delores Julio MD [facility] Physician Surgery, Vascular 05/06/23 Gregory Pollard MD Physician Endocrinology 05/06/23 Emelia Tobar Physician Gastroenterology 05/06/23 documented as of this encounter
--- OUTSIDE RECORDS SUMMARY | 2024-04-21 11:59 | XMS_ITS | Encounter Summary ---
Author Organization [facility] Address [address] [place] [address] Care Team Providers Care Bottoming Machine Operator Name Role Phone Inocencia Hdez PA-C Primary Care Provi hcristopher Encounter Details Date Type Department Care Team (Late st Contact Info) Description 02/24/2024 Scanned Document [facility] [address] [place] [address] Rheumatology, Scan Social History Tobacco Use Types Packs/Day [...] Description 08/03/2024 9:00 AM EDT Office Visit [address] [phone] Inocencia Hdez PA-C [address] [place] [address] documented as of this encounter Visit Diagnoses Not on filedocumented in this encounter Care Teams Bottoming Machine Operator Relationship Specialty Start Date End Date Inocencia Hdez PA-C [address] [place] [address] PCP - General Internal Medicine 06/07/23 Delores Julio MD [facility] Physician Surgery, Vascular 05/06/23 Gregory Pollard MD Physician Endocrinology 05/06/23 Emelia Tobar Physician Gastroenterology 05/06/23 documented as of this encounter
--- OUTSIDE RECORDS SUMMARY | 2024-04-21 11:59 | XMS_ITS ---
Author Name [facility] Organization Unknown History of Medication Use Medication Directions Dispensed Refills Start Date End Date Stat us levothyroxine (SYNTHROID, LEVOTHROID) 112 MCG tablet Take 1 tablet (112 mcg total) by mouth daily. 03/13/2023 active ascorbic acid (VITAMIN C) 500 MG tablet Take 1 tablet (500 mg total) by mouth daily. active metoPROLOL SUCCINATE (TOPROL-XL) 25 MG 24 hr tablet Take 1 tablet (25 mg total) by mouth daily. 03/26/2023 active calcium carbonate (OS-CHIP) 600 MG tablet Take 1 tablet (600 mg total) by mouth 2 times a day. active escitalopram (LEXAPRO) 20 MG tablet Take 1 tablet (20 mg total) by mouth daily. 05/07/2023 active multivitamin Tab tablet Take 1 tablet by mouth daily. active Problems Problem Status Onset Date Problem Type Date of Resoluti on Source Mild aortic stenosis active 2023-06-08 ProblemAct [facility] IFG (impaired fasting glucose) active 2023-06-07 ProblemAct [facility] Major depressive disorder, recurrent episode, in partial remission active 2023-06-07 ProblemAct [facility] Family history of colon cancer active 2023-06-08 ProblemAct [facility] Anxiety active 2023-06-07 ProblemAct [facility] Peripheral neuropathy active 2023-06-07 ProblemAct [facility] Pulmonary nodule active 2023-06-07 ProblemAct [facility] GERD (gastroesophageal reflux disease) active 2023-06-07 ProblemAct [facility] HTN (hypertension) active 2023-06-07 ProblemAct [facility] Hyperlipidemia active 2023-06-[address] History of tobacco use active 2023-06-07 ProblemAct [facility] Hypothyroidism active 2023-06-[address] Emphysema of lung active 2023-06-07 ProblemAct [facility] PAD (peripheral artery disease) active 2023-06-07 ProblemAct [facility] Immunizations Vaccine Date Source Lot Number Status Pneumococcal Conjugate 13-Valent 11/22/2014 [facility] completed Td 04/06/2010 [facility] completed Pneumococcal Polysaccharide 23-Valent 09/23/2008 [facility] completed Zoster Vaccine Live/Attenuated (Zostavax) 10/28/2008 [facility] completed Influenza, Quadrivalent (FLU CELVAX) MDCK, Preservative Free IM 12/20/2022 [facility] completed
--- OUTSIDE RECORDS SUMMARY | 2024-04-21 11:59 | XMS_ITS | Encounter Summary ---
Author Organization [facility] Address [address] [place] [address] Care Team Providers Care Bulk Picker Name Role Phone Inocencia Hdez PA-C Primary Care Provi christopher Encounter Details Date Type Department Care Team (Late st Contact Info) Description 09/24/[address] [place] [phone] Inocencia Hdez PA-C [address] [place] [address] Social History Tobacco Use Types Packs/Day Years [...] on file documented as of this encounter Miscellaneous Notes * Telephone Encounter - Elyssa Quintana MA - 09/25/2023 9:58 AM EDT Appt made * Telephone Encounter - Elyssa Quintana MA - 09/24/2023 2:36 PM EDT Pt stated she has leg cramps that keep her up at night. She stated she has been taking potassium vitamin to help but no relief. Please advise documented in this encounter Plan of Treatment Upcoming Encounters Date Type Department Care Team (Late st Contact Info) Description 08/03/2024 9:00 AM EDT Office Visit [facility] [address] [place] [address] Inocencia Hdez PA-C [address] [place] [address] documented as of this encounter Visit Diagnoses Not on filedocumented in this encounter Care Teams Bulk Picker Relationship Specialty Start Date End Date Inocencia Hdez PA-C [address] [facility] [place] [address] PCP - General Internal Medicine 06/07/23 Delores Julio MD [facility] Physician Surgery, Vascular 05/06/23 Gregory Pollard MD Physician Endocrinology 05/06/23 Emelia Tobar Physician Gastroenterology 05/06/23 documented as of this encounter
--- OUTSIDE RECORDS SUMMARY | 2024-04-21 11:59 | XMS_ITS | Encounter Summary ---
Author Organization [facility] Address [address] [place] [address] Care Team Providers Care Stucco Worker Name Role Phone Inocencia Hdez PA-C Primary Care Provi christopher Encounter Details Date Type Department Care Team (Late Contact Info) Description 06/16/2023 Scanned Document [address] [phone] Primary Care, Scan Social History Tobacco Use Types Packs/Day [...] Description 08/03/2024 9:00 AM EDT Office Visit [address] [phone] Inocencia Hdez PA-C [address] [place] [address] documented as of this encounter Visit Diagnoses Not on filedocumented in this encounter Care Teams Stucco Worker Relationship Specialty Start Date End Date Inocencia Hdez PA-C [address] [place] [address] PCP - General Internal Medicine 06/07/23 Delores Julio MD [facility] Phys[place] Surgery, Vascular 05/06/23 Gregory Pollard MD Physician Endocrinology 05/06/23 Emelia Tobar Physician Gastroenterology 05/06/23 documented as of this encounter
--- OUTSIDE RECORDS SUMMARY | 2024-04-21 11:59 | XMS_ITS | Patient Health Record ---
Author [facility] Address [address] [facility] [place] [place] [address] Care Team Providers Care Offender Job Retention Specialist Name Role Phone Elba Baker Primary Care Provider Laura Mijares Unavailable [phone] Allergies No Known Allergies Reason For Referral No Information Medications Medication SIG (Take, Route, Frequency, Duration) Notes Start Date End Date Status Verapamil HCl 240 mg Active Physical Therapy 3-4x per week for 3-4 weeks 01/26/2015 Not-Taking Losartan Potassium 100 MG 1 tablet Orall y Once a day for 30 day(s) Active Naprosyn 375 MG 1 tablet as needed Orally every 12 hrs for 30 Not-Taking Simvastatin 10 MG 1 tablet in the evening Orally Once a day for 30 day(s) Active Physical Therapy 3-4x per week for 3-4 weeks Not-Taking Levothyroxine Sodium 112 MCG 1 tablet in the morning on an empty stomach Orally Once a day Active Aspirin Adult Low Dose Unknown Vitamin C Active Calcium Active Multi Vitamin Daily Active Pravastatin Sodium N ot-Taking Escitalopram Oxalate 20 MG 1 tablet Oral ly Once a day Active hydroCHLOROthiazide 12.5 MG 1 tablet in the morning Orally Once a day Unknown Lisinopril 40 MG 1 tablet Orally Once a day Active Night Splint AFO - L1930 as directed 12/28/2015 Unknown Metoprolol Succinate ER 25 MG 1 tablet Orally Once a day Active Social History Tobacco Use: Social History Observation Description Date Details (start date - stop date) Former Smoker NA - 10/31/1980 Tobacco Use/Smoking Question Answer Notes Are you a: former smoker When did you stop smoking? 10/31/1980 Additional Findings: Tobacco Non-User Ex-cigaret te smoker Tobacco use other than smoking: Question Answer Notes Are you an other tobacco user? 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) Active confirmed Problem 244580053 Equinus contracture of right ankle (M24.571) Active confirmed Plan Of Treatment Pending Test Test Name Order Date MRI : Ankle, right 06/28/2015 MRI : Foot, left 06/28/2015 [id number] NAIL, 1-5 03/01/201522456,[id number] TENDON SHEATH/LIGAMENT 1 05/02/2014,[id number] TENDON SHEATH/LIGAMENT 0 04/12/201531589,[id number] TENDON SHEATH/LIGAMENT 0 05/11/2015 Insurance Providers Payer Name Payer Address Payer Phone Subscriber Number Group Number Insured Name Patient Relationship to Insured Coverage Start Date Coverage End Date [employer] [place] [employer] Advantage One [facility] [address] [place] [address] [phone] [id number] Leti Puga Self - patient is the insured Medical (General) History Medical History History ICD Code Cholesterol High blood pressure Neuropathy Thyroid disorder Measles Mumps Chicken pox Surgical History Surgery Date(Month/Year) cataract surgery back surgery 12/25/2009 eye surgery left and right ( eye lids) 0 11/03/2015 bladder mesh 01/10/2019
--- OUTSIDE RECORDS SUMMARY | 2024-04-21 11:59 | XMS_ITS | Encounter Summary ---
Author Organization [facility] Address [address] [place] [address] Care Team Providers Care Food And Nutrition Services Assistant Name Role Phone Inocencia Hdez PA-C Primary Care Provi christopher Encounter Details Date Type Department Care Team (Late st Contact Info) Description 04/09/[address] [place] [phone] Inocencia Hdez PA-C [address] [place] [address] Social History Tobacco Use Types Packs/Day Years [...] encounter Miscellaneous Notes * Telephone Encounter - Alejandra Moreno RN - 04/09/2024 3:07 PM EST Call obtained from patient. Patient reporting sudden headache 10/10 on the right side that lasted 20 minutes this afternoon. No associated symptoms. Patient has no symptoms now but wants to know if this is something to be concerned about. Patient triaged to ED. Patient states she uses [facility]. documented in this encounter Plan of Treatment Upcoming Encounters Date Type Department Care Team (Late st Contact Info) Description 08/03/2024 9:00 AM EDT Office Visit [facility] [address] [place] [address] Inocencia Hdez PA-C [address] [place] [address] documented as of this encounter Visit Diagnoses Not on filedocumented in this encounter Care Teams Food And Nutrition Services Assistant Relationship Specialty Start Date End Date Inocencia Hdez PA-C [address] [place] [address] PCP - General Internal Medicine 06/07/23 Delores Julio MD [facility] Physician Surgery, Vascular 05/06/23 Gregory Pollard MD Physician Endocrinology 05/06/23 Emelia Tobar Physician Gastroenterology 05/06/23 documented as of this encounter
--- OUTSIDE RECORDS SUMMARY | 2024-04-21 11:59 | XMS_ITS | Encounter Summary ---
Author Organization [facility] Address [address] [place] [address] Care Team Providers Care Senior Care Assistant Name Role Phone Inocencia Hdez PA-C Primary Care Provi christopher Encounter Details Date Type Department Care Team (Late st Contact Info) Description 07/25/2023 Scanned Document [facility] Pulmonary, Scan Social History Tobacco Use Types Packs/Day Years Used Date Smoking Tobacco: Former Cigarettes 2 35 1 8 - 2002 Smokeless Tobacco: Never Alcohol Use [...] Description 08/03/2024 9:00 AM EDT Office Visit [address] [phone] Inocencia Hdez PA-C [address] [place] [address] documented as of this encounter Visit Diagnoses Not on filedocumented in this encounter Care Teams Senior Care Assistant Relationship Specialty Start Date End Date Inocencia Hdez PA-C [address] [place] [address] PCP - General Internal Medicine 06/07/23 Delores Julio MD [facility] Physician Surgery, Vascular 05/06/23 Gregory Pollard MD Physician Endocrinology 05/06/23 Emelia Tobar Physician Gastroenterology 05/06/23 documented as of this encounter
--- OUTSIDE RECORDS SUMMARY | 2024-04-21 11:59 | XMS_ITS | Encounter Summary ---
Author Organization [facility] Address [address] [place] [address] Care Team Providers Care Global Mobility Specialist Name Role Phone Inocencia Hdez PA-C Primary Care Provi christopher Encounter Details Date Type Department Care Team (Late st Contact Info) Description 04/13/2024 Scanned Document [facility] [address] [place] [address] Emergency Medicine, Scan Social History Tobacco Use Types Packs/Day [...] Description 08/03/2024 9:00 AM EDT Office Visit [address] [phone] Inocencia Hdez PA-C [address] [place] [address] documented as of this encounter Visit Diagnoses Not on filedocumented in this encounter Care Teams Global Mobility Specialist Relationship Specialty Start Date End Date Inocencia Hdez PA-C [address] [place] [address] PCP - General Internal Medicine 06/07/23 Delores Julio MD [facility] Physician Surgery, Vascular 05/06/23 Gregory Pollard MD Physician Endocrinology 05/06/23 Emelia Tobar Physician Gastroenterology 05/06/23 documented as of this encounter
--- OUTSIDE RECORDS SUMMARY | 2024-04-21 11:59 | XMS_ITS | Encounter Summary ---
Author Organization [facility] Address [address] [place] [address] Care Team Providers Care Custom Feed Mill Operator Helper Name Role Phone Inocencia Hdez PA-C Primary Care Provi christopher Encounter Details Date Type Department Care Team (Late Contact Info) Description 10/07/2023 Scanned Document [facility] [address] [place] [phone] Inocencia Hdez PA-C [address] [place] [phone] Social History Tobacco Use Types Packs/Day Years [...] EDT Office Visit [facility] [address] [facility] [address] [place] [phone] Inocencia Hdez PA-C [address] [place], [place] [phone] documented as of this encounter Visit Diagnoses Not on filedocumented in this encounter Care Teams Custom Feed Mill Operator Helper Relationship Specialty Start Date End Date Inocencia Hdez PA-C [address] [place] [address] PCP - General Internal Medicine 06/07/23 Delores Julio MD [facility] [place] Physician Surgery, Vascular 05/06/23 Gregory Pollard MD Physician Endocrinology 05/06/23 Emelia Tobar Physician Gastroenterology 05/06/23 documented as of this encounter
--- OUTSIDE RECORDS SUMMARY | 2024-04-21 11:59 | XMS_ITS | Encounter Summary ---
Author Organization [facility] Address [address] [place] [address] Care Team Providers Care Threshing Operator Name Role Phone Inocencia Hdez PA-C Primary Care Provi christopher Encounter Details Date Type Department Care Team (Late Contact Info) Description 10/07/[address] [facility] [address] [place] [phone] Inocencia Hdez PA-C [address] [place] [phone] Social History Tobacco Use Types Packs/Day Years [...] Description 08/03/2024 9:00 AM EDT Office Visit [facility] [address] [facility] [address] [place] [phone] Inocencia Hdez PA-C [address] [place], [place] [phone] documented as of this encounter Visit Diagnoses Not on filedocumented in this encounter Care Teams Threshing Operator Relationship Specialty Start Date End Date Inocencia Hdez PA-C [address] [place] [address] PCP - General Internal Medicine 06/07/23 Delores Julio MD [facility] Physician Surgery, Vascular 05/06/23 Gregory Pollard MD Physician Endocrinology 05/06/23 Emelia Tobar Physician Gastroenterology 05/06/23 documented as of this encounter
--- OUTSIDE RECORDS SUMMARY | 2024-04-21 11:59 | XMS_ITS | Encounter Summary ---
Author Organization [address] [address] Care Team Providers Care Polisher Brass Name Role Phone Inocencia Hdez PA-C Primary Care Provi christopher Encounter Details Date Type Department Care Team (Late Contact Info) Description 10/01/[address] [phone] Inocencia Hdez PA-C [address] [place] [address] Social History Tobacco Use Types Packs/Day Years [...] Description 08/03/2024 9:00 AM EDT Office Visit [address] [phone] Inocencia Hdez PA-C [address] [place], [place] [phone] documented as of this encounter Visit Diagnoses Not on filedocumented in this encounter Care Teams Polisher Brass Relationship Specialty Start Date End Date Inocencia Hdez PA-C [address] [place] [address] PCP - General Internal Medicine 06/07/23 Delores Julio MD [facility] Physician Surgery, Vascular 05/06/23 Gregory Pollard MD Physician Endocrinology 05/06/23 Emelia Tobar Physician Gastroenterology 05/06/23 documented as of this encounter
--- OUTSIDE RECORDS SUMMARY | 2024-04-21 11:59 | XMS_ITS | Encounter Summary ---
[place] [address] Care Team Providers Care Trade Analyst Name Role Phone Inocencia Hdez PA-C Primary Care Provi christopher Reason for Visit * Reason Comments Medication Refill Encounter Details Date Type Department Care Team ([facility] Contact Info) Description 03/26/[address] [phone] Inocencia Hdez PA-C [address] [place], [place] [phone] Hyperlipidemia, unspecified hyperlipidemia type Social History Tobacco Use Types Packs/Day Years [...] Description 08/03/2024 9:00 AM EDT Office Visit [address] [phone] Inocencia Hdez PA-C [address] [place], [place] [phone] documented as of this encounter Visit Diagnoses Diagnosis Hyperlipidemia, unspecified hyperlipidemia type documented in this encounter Care Teams Trade Analyst Relationship Specialty Start Date End Date Inocencia Hdez PA-C [address] [place] [address] PCP - General Internal Medicine 06/07/23 Delores Julio MD [facility] [place] Physician Surgery, Vascular 05/06/23 Gregory Pollard MD Physician Endocrinology 05/06/23 Emelia Tobar Physician Gastroenterology 05/06/23 documented as of this encounter
== END 2024-04-21 10:45 | disposition home or self-care (01) ==
PROVIDERS: PCP Physician Assistant Medical; Visit Provider Hospitalist
DX: R91.1 Solitary pulmonary nodule (principal); J43.2 Centrilobular emphysema; M79.18 Myalgia, other site
CPT/HCPCS: 99214; G2211

== ENCOUNTER → 2024-04-21 10:08 | Outpatient (BNVA) | payer MEDICARE, SELFPAY | PROVIDERS: PCP Physician Assistant Medical; Visit Provider Hospitalist | DX: R91.1 Solitary pulmonary nodule (principal); J43.2 Centrilobular emphysema; M79.18 Myalgia, other site | CPT/HCPCS: 99212 ==

== ENCOUNTER 2024-10-21 10:06 | Outpatient (AMB) | payer MEDICARE, SELFPAY ==
[2024-10-21 10:09] VITALS: BP 136/70; PULSE 63; O2SAT 94; BMI 29.7
--- NOTE | 2024-10-21 10:09 | A.OFFVIS_ITS ---
Vital Signs 10/21/24 10:09 Height 5 ft 4 in Weight 173 lb 1.006 oz BMI 29.7 BP 136/70 Blood Pressure Location Lt brachial Position Sitting Pulse 63 Pulse Source Pulse Oximeter Pulse Oximetry (%) 94 Oxygen Delivery Method Room Air Intake Visit Reasons: Pulmonary Nodule Accompanied by: Self / Same As Patient Allergies No Known Allergies Allergy (Verified 10/21/24 10:15) HPI Comments Details: The patient is a 79-year-old woman presenting with a CT scan of the chest. The patient is a former smoker. She smoked for many years. Initially back around 5-6 years ago the patient was participating in the lung cancer screening program at [facility]. She had multiple pulmonary nodules. I personally reviewed her CT scan from 2020. It appeared that she had small pulmonary nodules. But nothing in the left upper lobe area where the concern is now. The patient then followed up with her primary care doctor in decided to continue the CT scans elsewhere. She was then referred to the [facility]. There she did have a CT scan sometime in February 2023 which I personally reviewed. Now she has a larger 2 cm irregular nodular density in the left upper lobe area adjacent to the aortic arch. This finding was not present on her CT scan from 2020. The patient ultimately had a repeat CT scan now May 2022 which I personally reviewed as well in appears that the irregular nodular density seems to be just slightly bigger. Although I explained to her that the timeframe on 3 months sometimes is not enough time to see the significant evolution. The patient does have a family history of lung cancer in the family is her sister recently from lung cancer. In addition to that she does have a significant smoking history. Therefore, I am concerned about this irregular nodular density in the left upper lobe area. I do believe a PET scan will be necessary to better address this abnormal finding. Specially since his in a difficult location for biopsy. Is very centrally located difficult to reach with a CT- guided biopsy and also very difficult to reach with a bronchoscopy. 09/26/2023 the patient is here for a pulmonary follow-up visit. The patient is otherwise doing well from a respiratory status. She did follow-up with thoracic surgery after her PET scan. She did undergo a CT-guided biopsy although it was nondiagnostic. She demonstrating chronic inflammatory changes. She was evaluated by thoracic surgery and still felt that is a tough air even as with a surgical approach. In view of the findings and the limited results in the pathology she is scheduled to undergo a repeat CT scan next week. I will plan to look at and give her a call. Otherwise she continues with current respiratory therapy. She is having some leg cramping therefore I did tell her to hold the Wixela for a week or so in order for the cramping to settle. In the meantime she is going to try some prednisone for 4 days prior to the CT scan to see if we see some improvement in the nodular density if it is an inflammatory process. 12/30/2023 the patient is here for a pulmonary follow-up visit. Since we last spoke the patient did follow-up with thoracic surgery [facility]. I believe she is scheduled to undergo a repeat CT scan for the pulmonary nodule in March or so. In the meantime she has been describing right-sided pleuritic chest discomfort. Moderate to severe. She could not sleep last night. She was called the ambulance. But she did not want to go because she did not want her weight. She is also complaining of some shortness of breath. She denies any history of blood clots. Denies any swelling of her legs. Denies any injury to her chest. On palpation she does have some pain in the costochondral joints. Although at this point will go ahead and have her get blood work including a D- dimer. If his elevated then will have to order a CTA to rule out thromboembolic disease. The patient is high risk. She is not taking any blood thinners at this time. 04/21/2024 the patient is here for a pulmonary follow-up visit. Overall she is doing well. She denies any shortness of breath denies any wheezing or coughing. She however has been having issues with significant Shiley hoarseness muscle pains. She has started taking quinine that she bought online. Although I explained to her that because she takes medications that can interact with the medication she needs to be extremely careful. For example explained to her that she takes an SSRI that can result in increased cardiac arrhythmias and she also takes a high dose of Lipitor and that can also cause increased level some that statin medication. Therefore, she is going to talk to her primary care doctor about making some medication changes. For now I did caution her about the use of quinine. In the meantime though she does Wixela that she takes daily. This can also cause potassium she was in muscle spasms. So based on the fact that her breathing is stable she can go ahead and stop that for now. If her breathing gets worse she can always call and we can talk about it further. As far as imaging studies she did have a CT scan of the chest not too long ago at [facility] which I personally reviewed with her. Her pulmonary nodules are stable she does have some areas of ground-glass opacities primarily at the left base that appear to be more like atelectasis if not a little bit of pneumonitis. But is minimal and is not concerning at this time. Therefore the provide her with an incentive spirometer so she can work on deep breathing exercises and she will follow-up in 6 months. If she has any worsening issues prior to that she will call for an earlier assessment. 10/21/2024 the patient is here for pulmonary follow-up visit. She continues have a cough chest congestion. Moderate severity. She is having some increased wheezing. The patient has been using her respiratory inhalers pressure improvement. She also has a nebulizer. Will go ahead and optimize her respiratory therapy by switching over to Trelegy. The patient also will benefit from a course of antibiotics and prednisone. In the meantime she did follow-up in [facility] and she did have a recent CT scan of the chest which I personally reviewed. The nodular density appears to be stable in size. She will have another CAT scan in a year's time and followed closely with thoracic surgery. Will follow-up in 6 months if she has any issues prior to this she will call for further recommendations. [facility] Medical History (Updated 10/24/24 @ 19:45 by Filiberto Mojica MD) Muscle ache of extremity Pleuritic chest pain COPD (chronic obstructive pulmonary disease) Pulmonary nodule 1 cm or greater in diameter Social History Patient Tobacco Use Status: Former Tobacco user Tobacco use type: Cigarette Years Smoked: 40+ Years Review of Systems Const Denies fever(s) ENT Reports nasal congestion Card Reports chest pain and Reports dyspnea on exertion Resp Reports cough, Reports dyspnea on exertion and Denies wheezing GI Reports no additional complaints Musc Reports no additional complaints Skin/Breast Denies rash Luis/Lymph Denies easy bruising Aller/Immun Denies wheezing Physical Exam Vital Signs: Last Vital Signs Pulse 63 08/14/25 10:09 BP 136/70 10/21/24 10:09 Pulse Ox 94 10/21/24 10:09 Oxygen Delivery Method Room Air 10/21/24 10:09 BMI result Body Mass Index 29.7 Const General: comfortable HEENT Head: Yes normocephalic Neck Neck: Yes supple Chest Chest palpation & inspection: normal inspection of the chest Resp Effort & Inspection: normal respiratory effort Auscultation: clear to auscultation bilaterally Cardio Heart sounds: S1 normal heart sound present and S2 normal heart sound present GI Palpation (GI): Soft to palpation Skin General skin exam: no rashes or lesions noted Extrem General: Yes no clubbing, cyanosis or edema Assessment & Plan Assessment & Plan (1) Pulmonary nodule 1 cm or greater in diameter: Code(s): R91.1 - Solitary pulmonary nodule Category: Medical (2) COPD (chronic obstructive pulmonary disease): Code(s): J44.9 - Chronic obstructive pulmonary disease, unspecified Category: Medical Qualifiers: COPD type: COPD with acute exacerbation Qualified Code(s): J44.1 - Chronic obstructive pulmonary disease with (acute) exacerbation (3) Muscle ache of extremity: Code(s): M79.18 - Myalgia, other site Category: Medical Plan start Trelegy 100 start Doxycycline start Medrol pk SINDY as needed [place] [facility] with stable nodules ISS sleep with HOB elevated F/U 4-6 months Medications: New jhagwpjugyb-alyuqjwvw-cphzfbzb 100-62.5-25 mcg (Trelegy Ellipta) 1 inh inhalation DAILY 60 ea 11RF 30 days J44.9 - Chronic obstructive pulmonary disease, unspecified methylprednisolone (Medrol (Darrian)) PO PER PKG DIR 21 ea 0RF 6 days doxycycline hyclate 100 mg PO BID 20 caps 0RF 10 days Coding Level of Care Code Est Pt Level 4 (33905) Complex EM visit Add On G2211 Diagnoses Pulmonary nodule 1 cm or greater in diameter R91.1 Chronic obstructive pulmonary disease with acute exacerbation J44.1 COPD type: COPD with acute exacerbation Muscle ache of extremity M79.18 Time Spent (min) 17
--- OUTSIDE RECORDS SUMMARY | 2024-10-21 10:49 | XMS_ITS | Encounter Summary ---
[place] [address] Care Team Providers Care Supervisor Gate Services Name Role Phone Inocencia Hdez PA-C Primary Care Provi christopher Encounter Details Date Type Department Care Team ([facility] Contact Info) Description 10/01/[address] [phone] Inocencia Hdez PA-C [address] [place], [place] [id number] Social History Tobacco Use Types Packs/Day Years Used Date Smoking Tobacco: Former Cigarettes 2 35 1 968 - 2003 Smokeless Tobacco: Never Alcohol Use Standard Drinks/Week Comments Not Currently 0 (1 standard drink = 0.6 oz pur e alcohol) PHQ-2 Answer Date Recorded PHQ-2 Total Score 2 06/09/2023 Comments Unknown Sex and Gender Information Value Date Recorded Sex Assigned at Not on file Legal Sex Female 10:41 AM EST Gender Identity Not on file Sexual Orientation Not on file documented as of this encounter Plan of Treatment Upcoming Encounters Date Type Department Care Team (Late Contact Info) Description 02/01/2025 9:30 AM EST Office Visit [address] [phone] Inocencia Hdez PA-C [address] [place], [place] [id number] documented as of this encounter Visit Diagnoses Not on filedocumented in this encounter Care Teams Supervisor Gate Services Relationship Specialty Start Date End Date Inocencia Hdez PA-C [address] [place] [address] PCP - General Internal Medicine 06/07/23 Delores Julio MD [facility] [place] Physician Surgery, Vascular 05/06/23 Gregory Pollard MD Physician Endocrinology 05/06/23 Emelia Tobar Physician Gastroenterology 05/06/23 documented as of this encounter
--- OUTSIDE RECORDS SUMMARY | 2024-10-21 10:49 | XMS_ITS | Continuity of Care Document ---
Author Organization [facility] Address [address] [place] [address] Phone [phone] Care Team Providers Care Computer Scientist Name Role Phone Inocencia Hdez Care Team Information Re ceiver [phone] Problems Active Problems Provider Date Graves' disease Gregory Pollard M.D. Onset: 0 06/05/2022 Hypothyroidism Gregory Pollard M.D. Onset: 0 06/05/2022 Social History Type Date Description Comments Sex Female Sex Unknown Tobacco Use Start: Unknown End: Unknown Quit 2005 ETOH Use Denies alcohol use Allergies and adverse reactions Description No Known Drug Allergies Medications Active Medications SIG Qnty Indications Order ing Provider Date Nmhdydd28vs Tablets 1 by mouth every day 90tabs Gregory Pollard M.D. 06/17/2024 Levothyroxine Svtdor344dvf Tablets Take One Tablet By Mouth Every Day (Take 2 Tablets On Sundays) 102tabs Gregory Pollard M.D. 10/31/2021 Verapamil HCL VN007sf Caps ER 24HR Take One Capsule By Mouth Every Day Inocencia Hdez, P.A. Gnojbilxp8ks Tablets Take One Tablet By Mouth AT Bedtime as Needed Inocencia Hdez P.A. Escitalopram Znmuxxd97ft Tablets Take One Tablet By Mouth Every Day Inocencia Hdez P.A. Losartan Potassium/Hydrochlorot jwuzjwy105-36.5mg Tablets Take One Tablet By Mouth Every Day Inocencia Hdez P.A. Metoprolol Succinate ER25mg Tablets ER 24HR Take One Tablet By Mouth Every Day Marvel Osborne JOSE Vital Signs Date Vital Result Comment 06/17/2024 10:11am BP Systolic 120 mmHg BP Diastolic 80 mmHg Heart Rate 72 /min Height 64 inches 5'4 Weight 175.50 lb BMI (Body Mass Index) 30.1 kg/m2 Results Test Acquired Date Facility Test Result H/L Range N ote TSH RFX On Abnormal To Free T4 06/19/2023 [facility] TSH RFX On Abnormal To Free T4 <pending> TSH Rfx on Abnormal to Free T4 06/18/2023 [facility] TSH RFX On Abnormal To Free T4 0.316 uIU/mL Low 0.450-4.50 0 T4,Free (Direct) 1.42 ng/dL 0.82-1.77 TSH With Reflex To FT4 06/05/2022 [facility] TSH With Reflex To FT4 2.40 uIU/mL (0.4-4.2) Medical Devices Description No Information Available Encounters Type Date Location Provider Dx Diagnosis Office Visit 06/17/2024 10:00a Main Office Gregory Pollard M.D. 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 06/17/2024 E05.00 Graves' disease Gregory brock M.D. Plan of Treatment Future Appointment(s):* 06/20/2025 10:00 am - Gregory Pollard M.D. at Main Office 06/17/2024 - Gregory Pollard M.D.* E03.9 Hypothyroidism, unspecified * E05.00 Graves' disease * Functional Status Description No Information Available Mental Status Description No Information Available Referrals Description No Information Available
--- OUTSIDE RECORDS SUMMARY | 2024-10-21 10:49 | XMS_ITS | Patient Health Record ---
[facility] Address [address] [place] [address] Care Team Providers Care Technical Agronomist Name Role Phone Elba Baker Primary Care Provider Laura Mijares Unavailable [phone] Allergies No Known Allergies Reason For Referral No Information Medications Medication SIG (Take, Route, Frequency, Duration) Notes Start Date End Date Status Verapamil HCl 240 mg Active Physical Therapy 3-4x per week for 3-4 weeks 01/26/2015 Not-Taking Losartan Potassium 100 MG 1 tablet Orall y Once a day; Duration: 30 day(s) Active Naprosyn 375 MG 1 tablet as needed Orally every 12 hrs; Duration: 30 Not-Taking Simvastatin 10 MG 1 tablet in the evening Orally Once a day; Duration: 30 day(s) Active Physical Therapy 3-4x per [...] Problem Status W/U Status Risk Notes Problem Non-pressure ulcer of left lower extremity, 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) Active confirmed Problem 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) Active confirmed Problem Plantarflexion deformity of right foot (finding) ([id number]) Equinus contracture of right ankle (M24.571) Active confirmed Plan Of Treatment Pending Test Test Name Order Date MRI : Ankle, right 06/28/2015 MRI : Foot, left 06/28/2015 [id number] NAIL, 1-5 03/01/2015,[id number] TENDON SHEATH/LIGAMENT 1 05/02/2014,[id number] TENDON SHEATH/LIGAMENT 0 04/12/201554162,[id number] TENDON SHEATH/LIGAMENT 0 05/11/2015 Insurance Providers Payer Name Payer Address Payer Phone Subscriber Number Group Number Insured Name Patient Relationship to Insured Coverage Start Date Coverage End Date [employer]age [facility] [address] [facility] [place] [id number] Leti Puga Self - patient is the insured Medical (General) History Medical History History ICD Code Cholesterol High blood pressure Neuropathy Thyroid disorder Measles Mumps Chicken pox Surgical History Surgery Date(Month/Year) cataract surgery back surgery 12/25/2009 eye surgery left and right ( eye lids) 0 11/03/2015 bladder mesh 01/10/2019
--- OUTSIDE RECORDS SUMMARY | 2024-10-21 10:49 | XMS_ITS | Clinical Summary ---
Author Organization [facility] [email or web address] Address [address] [facility] [place] [address] Phone Care Team Providers Care Healthcare Administration Intern Name Role Phone Elba Baker MD Primary Care Provider [phone] Allergies No known active allergies Medications aspirin 81 mg chewable tablet Chew 1 tablet (81 mg total) daily. 05/16/2023 Active atorvastatin (LIPITOR) 80 mg tablet Take 1 tablet (80 mg total) by mouth 1 (one) time each day. 03/27/2024 Active calcium carbonate 1,500 mg (600 mg elemental calcium) tablet Take 600 mg by mouth 2 times daily. Active escitalopram (LEXAPRO) 20 mg tablet Take 1 tablet (20 mg total) by mouth 1 (one) time each day. Active ezetimibe (ZETIA) 10 mg tablet Take 1 tablet (10 mg total) by mouth 1 (one) time each day. 12/19/2023 Active fluticasone-kirk meterol (ADVAIR DISKUS) 250-50 mcg/dose diskus inhaler Inhale 1 puff by mouth every 12 hours. 09/06/2023 Active levothyroxine (SYNTHROID, LEVOTHROID) 112 mcg tablet Take 1 tablet (112 mcg total) by mouth daily. 03/13/2023 Active LORazepam (ATIVAN) 0.5 mg tablet Take 1 tablet (0.5 mg total) by mouth once daily as needed. Active losartan-hydroC HLOROthiazide (HYZAAR) 100-12.5 mg per tablet Take 1 tablet by mouth daily. 10/15/2023 Active metoprolol succinate (TOPROL-XL) 25 mg 24 hr tablet Take 1 tablet (25 mg total) by mouth 1 (one) time each day. 12/19/2023 Active mirtazapine (REMERON) 7.5 mg tablet Take 1 tablet (7.5 mg total) by mouth daily. 01/27/2024 Active verapamil ER (VERELAN) 240 mg 24 hr capsule Take 1 capsule (240 mg total) by mouth 1 (one) time each day. Active Hospital, Clinic, or Other Facility Administered Medication Ordered Dose Route Frequency Start Date End Date Status TC-99M tetrofosmin P radio-isotope injection 9.5 millicurie 9.5 millicurie IV Once in imaging 10/15/2024 10/15/2024 Ended TC-99M tetrofosmin P radio-isotope injection 32.8 millicurie 32.8 millicurie IV Once in imaging 10/15/2024 10/15/2024 En[place] d regadenoson (LEXISCAN) injection 0.4 mg 0.4 mg IV Once in imaging 10/15/2024 10/15/2024 End ed aminophylline injection 25 mg 25 mg IV Once in imaging 10/15/2024 10/15/2024 Ende d Active Problems Problem Noted Date Diagnosed Date Dyspnea on exertion 09/21/2024 Assessment & Plan (09/21/2024 9:53 AM EDT): The patient has been noticing symptoms of exertional dyspnea. Her symptoms have worsened during the past few months. She does have a history of COPD which may be contributing to her symptoms. However, the patient also has a history of coronary artery calcifications noted on a prior chest CT scan. As such, her dyspnea may be higher in general including in the setting of underlying coronary artery disease. As such, further cardiac testing is indicated with an ischemic evaluation. Will order a stress test. Given the patient's osteoarthritis and need to ambulate with a cane, she will be unable to tolerate an exercise protocol. Therefore, we will proceed with a pharmacological nuclear stress test. On the other hand, the patient has a history of aortic valve stenosis and the exertional dyspnea may be secondary to progressive aortic valve stenosis. As such, we will order an echocardiogram to reevaluate her aortic valve stenosis. Orders: Regadenoson (Lexiscan) nuclear stress test with myocardial perfusion; Future regadenoson (LEXISCAN) injection 0.4 mg Transthoracic echocardiogram (TTE) complete with PRN contrast, bubble, strain, and 3D order panel; Future perflutren lipid microsphere (DEFINITY) 1.3 mL in sodium chloride 0.9% 8.7 mL injection Nonrheumatic aortic valve stenosis 09/20/2024 Assessment & Plan (09/21/2024 9:53 AM EDT): The patient has a history of aortic valve stenosis. On the echocardiogram done in March 2024 the aortic valve stenosis was noted to be moderate in severity. On today's visit, the patient states that she has been noticing symptoms of exertional dyspnea in the past few months. As such, we will order an echocardiogram to reevaluate the severity of her aortic valve stenosis. Orders: Transthoracic echocardiogram (TTE) complete with PRN contrast, bubble, strain, and 3D order panel; Future perflutren lipid microsphere (DEFINITY) 1.3 mL in sodium chloride 0.9% 8.7 mL injection Intracranial hemorrhage (CMS/HCC V24, CMS/HCC V2 8) 09/20/2024 PAD (peripheral artery disease) (CMS/HCC V24) Overview (09/20/2024): angioplasty and stenting of right SFA and AK popliteal 06/25/2022 for right sided short distance claudication. Follows with [facility] vascular. HTN (hypertension) 02/09/2020 Assessment & Plan (09/21/2024 9:53 AM EDT): The patient has a history of arterial hypertension. The patient's blood pressure today was noted to be well controlled. We'll continue the current antihypertensive medication regimen. Hyperlipidemia 02/09/2020 Assessment & Plan (09/21/2024 9:53 AM EDT): The patient has a history of hyperlipidemia. She also has a history of lower extremity PAD, coronary artery calcifications, and carotid artery stenosis. The patient is currently on Zetia 10 mg orally daily and atorvastatin 80 mg orally daily. Last lipid panel showed an adequate cholesterol control. Will recommend to continue her current medication regimen. Encounters Date Type Department Care Team Description 10/15/2024 9:30 AM EDT Ancillary Procedure [facility] [address] [place] [address] Dyspnea on exertion 09/21/2024 9:20 AM EDT Office Visit [facility] [address] [place] [id number] Sharif Thurman MD Primary hypertension (Primary Dx); Pure hypercholesterolemia ; Dyspnea on exertion; Nonrheumatic aortic valve stenosis; Mild aortic stenosis; PAD (peripheral artery disease) (CMS/HCC V24) from Last 3 Months Surgical History Surgery Date Site/Laterality Comments APPENDECTOMY PROCEDURE: HISTORICAL APPENDECTOMY EYE SURGERY 10/2015 PROCEDURE: HISTORICAL EYE SURGERY; COMMENT: Blepharoplasty, bilateral CATARACT EXTRACTION Bilateral PROCEDURE: HISTORICAL CATARACT REMOVAL HYSTERECTOMY 1983 PROCEDURE: HISTORICAL HYSTERECTOMY; COMMENT: w/ bilateral oophorectomy BACK SURGERY 02/2010 PROCEDURE: HISTORICAL BACK SURGERY; COMMENT: lumbar decompression L4-L5 OTHER SURGICAL HISTORY PROCEDURE: HISTORICAL MASTOIDECTOMY; COMMENT: childhood Medical History Medical History Date Comments Anxiety 02/09/2020 DX:Anxiety COPD (chronic obstructive pu lmonary disease) with emphysema (CMS/HCC V24, CMS/HCC V28) 02/09/2020 DX:COPD (chronic obstructive pulmonary disease) with emphysema ([facility]) GERD (gastroesophageal reflux disease) 02/09/2020 DX:GERD (gastroesophageal reflux disease) Fatty liver 02/09/2020 DX:Fatty liver Hypothyroidism 02/09/2020 DX:Hypothyroidis m Graves disease 02/09/2020 DX:Graves diseas e Hyperlipidemia 02/09/2020 DX:Hyperlipidemi a Peripheral neuropathy 02/09/2020 DX:Periphe ral neuropathy HTN (hypertension) 02/09/2020 DX:HTN (hyper tension) Major depressive disorder, r ecurrent episode, in partial remission (CMS/HCC V24) 02/09/2020 DX:Major depressive disorder , recurrent episode, in partial remission (HCC) Family History Medical History Relation Name Comments Diabetes Father hypertension Relation Name Status Comments Father Social History Tobacco Use Types Packs/Day Years Used Date Smoking Tobacco: Former Cigarettes Smokeless Tobacco: Never Tobacco Cessation:Counseling Given: Not Answered Alcohol Use Standard Drinks/Week Comments Not Currently 0 (1 standard drink = 0.6 oz pur e alcohol) Comments Unknown Sex and Gender Information Value Date Recorded Sex Assigned at Not on file Legal Sex Female 10:02 AM EST Gender Identity Not on file Sexual Orientation Not on file Obstetrics History Last Filed Vital Signs Vital Sign Reading Time Taken Comments Blood Pressure 140/68 10/15/2024 9:47 AM EDT Pulse 60 09/21/2024 9:01 AM EDT Temperature - - Respiratory Rate - - Oxygen Saturation 97% 09/21/2024 9:01 AM EDT Inhaled Oxygen Concentration - - Weight 78 kg (172 lb) 10/15/2024 9:36 AM EDT Height 162.6 cm (5' 4 ) 10/15/2024 9:36 AM EDT Body Mass Index 29.52 10/15/2024 9:36 AM EDT Plan of Treatment Upcoming Encounters Date Type Department Care Team (Late st Contact Info) Description 10/25/2024 9:00 AM EDT Ancillary Procedure [facility] [address] [facility] [address] [place] [address] Health Maintenance Due Date Last Done Comments DTaP,Tdap,and Td Vaccines (2 - Td or Tdap) 04/06/2020 04/06/2010 Cholesterol Screening (Lipid Panel) 02/10/2022 Falls Risk Assessment 02/10/2022 Medicare Annual Wellness Visit 02/10/2022 Osteoporosis Screening (Bone Density Screening) 02/10/2022 Social Influencers of Health Screening 02/10/2022 Hypertension/CHF/CAD Annual BMP Blood Test 02/20/2022 COVID-19 Vaccine ( season) 2023 01/17/2022, 07/13/2020, 06/22/2020 Depression Screening 03/10/2024 Influenza Vaccine (#1) 2024 , 12/20/2022, 12/15/2019, Additional history exists Pneumococcal Vaccine: 50+ Years Completed 11/22/2014, 09/23/2008 RSV Immunization Adult Patients Completed 08/04/2024 Zoster Vaccines Completed 08/04/2024, 10/28/2008 HIB Vaccines Aged Out No longer eligi ble based on patient's age to complete this topic HPV Vaccines Aged Out No longer eligi ble based on patient's age to complete this topic Hepatitis A Vaccines Aged Out No long er eligible based on patient's age to complete this topic Hepatitis B Vaccines Aged Out No long er eligible based on patient's age to complete this topic IPV Vaccines Aged Out No longer eligi ble based on patient's age to complete this topic MMR Vaccines Aged Out No longer eligi ble based on patient's age to complete this topic Meningococcal ACWY Vaccine Aged Out N o longer eligible based on patient's age to complete this topic Meningococcal B Vaccine Aged Out No l onger eligible based on patient's age to complete this topic RSV Immunization Patients Under 20 months Aged Out No longer eligible based on patient's age to complete this topic Varicella Vaccines Aged Out No longer eligible based on patient's age to complete this topic Procedures Procedure Name Priority Date/Time Associated Diagnosis Comments NM LEXISCAN STRESS TEST W/ MYOCARDIAL PERFUSION Routine 10/15/2024 11:56 AM EDT Dyspnea on exertion ECG 12-LEAD Routine 09/21/2024 9:13 AM EDT Mild aortic stenosis from Last 3 Months Results * NM LEXISCAN STRESS TEST W/ MYOCARDIAL PERFUSION (10/15/2024 11:56 AM EDT) Exercise/injec tion duration (min) 0 CV PACS STRESS Exercise/injec tion duration (sec) 48 CV PACS STRESS Peak SBP 180 mmHg CV PACS STRESS Peak DBP 70 mmHg CV PACS STRESS Peak HR 72 bpm CV PACS STRESS Baseline HR 72 bpm CV PACS STRESS Baseline SBP 140 mmHg CV PACS STRESS Baseline DBP 68 mmHg CV PACS STRESS Estimated workload 1.0 METS CV PACS STRESS Percent HR 52 % CV PACS STRESS Rate Pressure Product 12,960.0 mmHg*bpm CV PACS STRESS Target HR 118 bpm CV PACS STRESS TID 1.20 CV PACS STRESS Nuc Stress EF 71 % CV PAC S STRESS Nuc Rest EF 77 % CV PACS STRESS BSA 1.88 m2 CV PACS STRESS Max HR Percent 51 % CV PA CS STRESS Anatomical Region Laterality Modality Nuclear Medicine 10/15/2024 10:4 1 AM EDT 10/15/2024 11:16 AM EDT Narrative 10/15/2024 8:47 PM EDT Stress ECG was normal. Vasodilator (regadenoson) stress test was performed . Hypertensive blood pressure response. Normal myocardial perfusion study. LV perfusion is normal. Stress ejection fraction is 71%. Evidence of borderline transient ischemic dilation (TID). Mild coronary artery calcification on CT Stress Findings A pharmacological stress test was performed using regadenoson, 0.4 mg IV over 10-15 seconds, followed by radiopharmacological injection 10 seconds post infusion. Total stress time was 0 min and 48 sec. Low level exercise was used during pharmacological stress test. Reversal medication aminophylline given 50 mg IV The patient's hemodynamic response was adequate for diagnosis. Blood pressure demonstrated a hypertensive response. Heart rate demonstrated a blunted response. The patient reported significant dizziness and nausea associated with regadenoson administration which resolved with 50 mg of aminophylline IV. Patient at baseline by the end of recovery. ECG 79 year old female with c/o worsening RAMIREZ, medical history of HLD, PAD, prior smoker, , coronary calcifications seen on CT and COPD The baseline ECG shows sinus bradycardia, 1st degree AVB with MS of 240 ms, abnormal R wave progression. There were no arrhythmias during stress. There were no arrhythmias during recovery. The result of the stress ECG was negative for ischemia. Nuclear Study Quality Study technique: MPI, SPECT, multi, rest and stress, 1 day and gated. Overall image quality is good. CT attenuation correction was utilized. No radiopharmaceutical dose was extravasated. Perfusion Defect Conclusion There is evidence of borderline transient ischemic dilation (TID), measuring 1.20. TID was appreciated quantitatively but not visually. Stress Function Comments Stress ejection fraction is 71%. Rest Function Comments Left ventricular function at rest was normal. Resting ejection fraction was 77%. Stress Combined Conclusion Normal myocardial perfusion study. Overall low cardiovascular risk. CT Findings Mild coronary calcification on CT Perfusion Comments LV perfusion is normal. There is no evidence of inducible ischemia. Breast attenuation is corrected with attenuation correction us Sharif Thurman MD CV STRESS PROCEDURES F inal Result * ECG 12 lead (09/21/2024 9:13 AM EDT) Ventricular Rate ECG 56 BPM GEMUSE Atrial Rate 56 BPM GEMUSE P-R Interval 224 ms GEMUSE QRS Duration 80 ms GEMUSE Q-T Interval 428 ms GEMUSE QTc 413 ms GEMUSE P Wave [place] 81 degrees GEMUSE R [place] 43 degrees GEMUSE T [place] 55 degrees GEMUSE ECG Interpretation Sinus bradycardia with 1st degree A-V block Poor R wave progression Abnormal ECG No previous ECGs available Confirmed by SHARIF THURMAN ([id number]) on 09/21/2024 9:48:14 AM GEMUSE 09/21/2024 9:13 AM EDT 09/21/2024 9:48 AM EDT us Sharif Thurman MD ECG ORDERABLES Final Result GEMUSE from Last 3 Months Insurance [employer] Care Teams Healthcare Administration Intern Relationship Specialty Start Date End Date Elba Baker MD [address] [place] [address] PCP - General Internal Medicine 09/06/24
--- OUTSIDE RECORDS SUMMARY | 2024-10-21 10:49 | XMS_ITS ---
Author Name [facility] Organization Unknown Results Test Name/Text Value Interpretation Date Range Source Squamous #/area UrnS HPF NONE SEEN Normal 08/06/2024 - [facility] WBC #/area UrnS HPF NONE SEEN Normal 08/06/2024 - [facility] Service Cmnt-Imp 08/06/2024 QU EST pH Ur Strip 7.5 Normal 08/06/2024 5 - 8 [facility] Hyaline Casts #/area UrnS LPF NONE SEEN Normal 08/06/2024 - [facility] Leukocyte esterase Ur Ql Strip NEGATIVE Normal 08/06/2024 - [facility] Ketones Ur Ql Strip NEGATIVE Normal 08/06/2024 - [facility] Sp Gr Ur Strip 1.011 Normal 08/06/2024 1.001 - 1.035 [facility] Bilirub Ur Ql Strip NEGATIVE Normal 08/06/2024 - [facility] Hgb Ur Ql Strip NEGATIVE Normal 08/06/2024 [facility] Nitrite Ur Ql Strip NEGATIVE Normal 08/06/2024 - [facility] RBC #/area UrnS HPF NONE SEEN Normal 08/06/2024 - [facility] Bacteria #/area UrnS HPF NONE SEEN Normal 08/06/2024 - [facility] Glucose Ur Ql Strip NEGATIVE Normal 08/06/2024 - [facility] Appearance Ur CLOUDY Abnormal 08/06/2024 - [facility] Prot Ur Ql Strip NEGATIVE Normal 08/06/2024 - [facility] Color Ur YELLOW Normal 08/06/2024 - [facility] Bacteria Ur Cult SEE NOTE Abnormal 08/06/2024 QU EST History of Medication Use Medication Directions Dispensed Refills Start Date End Date Stat us escitalopram (LEXAPRO) 20 MG tablet Take 1 tablet (20 mg total) by mouth daily. 05/07/2023 active metoPROLOL SUCCINATE (TOPROL-XL) 25 MG 24 hr tablet Take 1 tablet (25 mg total) by mouth daily. 03/26/2023 active levothyroxine (SYNTHROID, LEVOTHROID) 112 MCG tablet Take 1 tablet (112 mcg total) by mouth daily. 03/13/2023 active ascorbic acid (VITAMIN C) 500 MG tablet Take 1 tablet (500 mg total) by mouth daily. active calcium carbonate (OS-CHIP) 600 MG tablet Take 1 tablet (600 mg total) by mouth 2 times a day. active multivitamin Tab tablet Take 1 tablet by mouth daily. active Problems Problem Status Onset Date Problem Type Date of Resoluti on Source Mild aortic stenosis active 2023-06-08 ProblemAct [facility] Pulmonary nodule active 2023-06-07 ProblemAct [facility] Peripheral neuropathy active 2023-06-07 ProblemAct [facility] HTN (hypertension) active 2023-06-07 ProblemAct [facility] History of tobacco use active 2023-06-07 ProblemAct [facility] Emphysema of lung active 2023-06-07 ProblemAct [facility] Hyperlipidemia active 2023-06-[address] IFG (impaired fasting glucose) active 2023-06-07 ProblemAct [facility] GERD (gastroesophageal reflux disease) active 2023-06-07 ProblemAct [facility] Hypothyroidism active 2023-06-[address] Major depressive disorder, recurrent episode, in partial remission active 2023-06-07 ProblemAct [facility] PAD (peripheral artery disease) active 2023-06-07 ProblemAct [facility] Family history of colon cancer active 2023-06-08 ProblemAct [facility] Anxiety active 2023-06-07 ProblemAct [facility] Immunizations Vaccine Date Source Lot Number Status Influenza, Quadrivalent (FLU CELVAX) MDCK, Preservative Free IM 12/20/2022 [facility] completed Pneumococcal Conjugate 13-Valent 11/22/2014 [facility] completed Td 04/06/2010 [facility] completed Zoster Vaccine Live/Attenuated (Zostavax) 10/28/2008 [facility] completed Pneumococcal Polysaccharide 23-Valent 09/23/2008 [facility] completed Encounters Encounter Type Encounter Reason Primary Diagnosis Location Date Ambulatory Dysuria Dysuria [employer] 08/03/2024 Ambulatory Headache, unspecified Headache, unspecified [facility] 04/28/2024 Ambulatory Essential (primary) hypertension Essential (primary) hypertension [facility] 01/27/2024 Ambulatory Pain in right hand Pain in right hand [facility] [employer] 09/30/2023 Ambulatory Gastro-esophageal reflux disease without esophagitis Gastro-esophageal reflux disease without esophagitis [facility] 06/09/2023 Care Team Organization Name Specialty Phone Email Start Date End Da te [facility] MADELIN Primary [facility] 06/09/2023 [place] [employer] BRUNA YUSUF Primary Care 06/08/2023 [place] [employer] NO PCP Primary Care 04/08/2023
== END 2024-10-21 10:40 | disposition home or self-care (01) ==
PROVIDERS: PCP Physician Assistant Medical; Visit Provider Hospitalist
DX: R91.1 Solitary pulmonary nodule (principal); J44.1 Chronic obstructive pulmonary disease with (acute) exacerbation; M79.18 Myalgia, other site
CPT/HCPCS: 99214; G2211

== ENCOUNTER → 2024-10-21 10:06 | Outpatient (BNVA) | payer MEDICARE, SELFPAY | PROVIDERS: PCP Physician Assistant Medical; Visit Provider Hospitalist | DX: R07.81 Pleurodynia (principal); R91.1 Solitary pulmonary nodule | CPT/HCPCS: 99212 ==

== ENCOUNTER 2025-01-28 10:39 | Outpatient (AMB) | payer MEDICARE, SELFPAY ==
[2025-01-28 10:41] VITALS: BP 130/50; PULSE 64; O2SAT 97; BMI 30.1
--- NOTE | 2025-01-28 10:41 | A.OFFVIS_ITS ---
Vital Signs 01/28/25 10:41 Height 5 ft 4 in Weight 175 lb 4.28 oz BMI 30.1 BP 130/50 L Blood Pressure Location Lt brachial Position Sitting Pulse 64 Pulse Source Pulse Oximeter Pulse Oximetry (%) 97 Oxygen Delivery Method Room Air Intake Visit Reasons: Pulmonary Nodule Campaign Assistant Required: No Accompanied by: Self / Same As Patient Allergies No Known Allergies Allergy (Verified 01/28/25 10:45) HPI Comments Details: The patient is a 79-year-old woman presenting with a CT scan of the chest. The patient is a former smoker. She smoked for many years. Initially back around 5-6 years ago the patient was participating in the lung cancer screening program at [facility]. She had multiple pulmonary nodules. I personally reviewed her CT scan from 2020. It appeared that she had small pulmonary nodules. But nothing in the left upper lobe area where the concern is now. The patient then followed up with her primary care doctor in decided to continue the CT scans elsewhere. She was then referred to the [facility]. There she did have a CT scan sometime in February 2023 which I personally reviewed. Now she has a larger 2 cm irregular nodular density in the left upper lobe area adjacent to the aortic arch. This finding was not present on her CT scan from 2020. The patient ultimately had a repeat CT scan now May 2022 which I personally reviewed as well in appears that the irregular nodular density seems to be just slightly bigger. Although I explained to her that the timeframe on 3 months sometimes is not enough time to see the significant evolution. The patient does have a family history of lung cancer in the family is her sister recently from lung cancer. In addition to that she does have a significant smoking history. Therefore, I am concerned about this irregular nodular density in the left upper lobe area. I do believe a PET scan will be necessary to better address this abnormal finding. Specially since his in a difficult location for biopsy. Is very centrally located difficult to reach with a CT- guided biopsy and also very difficult to reach with a bronchoscopy. 09/26/2023 the patient is here for a pulmonary follow-up visit. The patient is otherwise doing well from a respiratory status. She did follow-up with thoracic surgery after her PET scan. She did undergo a CT-guided biopsy although it was nondiagnostic. She demonstrating chronic inflammatory changes. She was evaluated by thoracic surgery and still felt that is a tough air even as with a surgical approach. In view of the findings and the limited results in the pathology she is scheduled to undergo a repeat CT scan next week. I will plan to look at and give her a call. Otherwise she continues with current respiratory therapy. She is having some leg cramping therefore I did tell her to hold the Wixela for a week or so in order for the cramping to settle. In the meantime she is going to try some prednisone for 4 days prior to the CT scan to see if we see some improvement in the nodular density if it is an inflammatory process. 12/30/2023 the patient is here for a pulmonary follow-up visit. Since we last spoke the patient did follow-up with thoracic surgery [facility]. I believe she is scheduled to undergo a repeat CT scan for the pulmonary nodule in March or so. In the meantime she has been describing right-sided pleuritic chest discomfort. Moderate to severe. She could not sleep last night. She was called the ambulance. But she did not want to go because she did not want her weight. She is also complaining of some shortness of breath. She denies any history of blood clots. Denies any swelling of her legs. Denies any injury to her chest. On palpation she does have some pain in the costochondral joints. Although at this point will go ahead and have her get blood work including a D- dimer. If his elevated then will have to order a CTA to rule out thromboembolic disease. The patient is high risk. She is not taking any blood thinners at this time. 04/21/2024 the patient is here for a pulmonary follow-up visit. Overall she is doing well. She denies any shortness of breath denies any wheezing or coughing. She however has been having issues with significant Shiley hoarseness muscle pains. She has started taking quinine that she bought online. Although I explained to her that because she takes medications that can interact with the medication she needs to be extremely careful. For example explained to her that she takes an SSRI that can result in increased cardiac arrhythmias and she also takes a high dose of Lipitor and that can also cause increased level some that statin medication. Therefore, she is going to talk to her primary care doctor about making some medication changes. For now I did caution her about the use of quinine. In the meantime though she does Wixela that she takes daily. This can also cause potassium she was in muscle spasms. So based on the fact that her breathing is stable she can go ahead and stop that for now. If her breathing gets worse she can always call and we can talk about it further. As far as imaging studies she did have a CT scan of the chest not too long ago at [facility] which I personally reviewed with her. Her pulmonary nodules are stable she does have some areas of ground-glass opacities primarily at the left base that appear to be more like atelectasis if not a little bit of pneumonitis. But is minimal and is not concerning at this time. Therefore the provide her with an incentive spirometer so she can work on deep breathing exercises and she will follow-up in 6 months. If she has any worsening issues prior to that she will call for an earlier assessment. 01/28/2025 the patient is here for pulmonary follow-up visit. She continues have a cough and dyspnea with acitivity.. Moderate severity. She is having dysonean even with minimal activity,. The patient has been using her respiratory inhalers with minimal improvement. Will go ahead and optimize her respiratory therapy by switching over to Trelegy. The patient also will benefit from a course of antibiotics and prednisone. In the meantime she did follow-up in [facility] and she did have a recent CT scan of the chest which I personally reviewed. The nodular density appears to be stable in size. She will have another CAT scan in a year's time and followed closely with thoracic surgery. In the mean time, the patient did desaturate on RA with activity. She benefits from supplemental oxygen with activity. She also can consider a nebulizer. [facility] Medical History (Updated 10/24/24 @ 19:45 by Filiberto Mojica MD) Muscle ache of extremity Pleuritic chest pain COPD (chronic obstructive pulmonary disease) Pulmonary nodule 1 cm or greater in diameter Social History Patient Tobacco Use Status: Former Tobacco user Tobacco use type: Cigarette Years Smoked: 40+ Years Review of Systems Const Denies fever(s) ENT Reports nasal congestion Card Denies chest pain and Reports dyspnea on exertion Resp Reports cough, Reports dyspnea on exertion and Denies wheezing GI Reports no additional complaints Musc Reports no additional complaints Skin/Breast Denies rash Luis/Lymph Denies easy bruising Aller/Immun Denies wheezing Physical Exam Vital Signs: Last Vital Signs Pulse 64 01/28/25 10:41 BP 130/50 L 01/28/25 10:41 Pulse Ox 97 01/28/25 10:41 Oxygen Delivery Method Room Air 01/28/25 10:41 BMI result Body Mass Index 30.1 Const General: comfortable HEENT Head: Yes normocephalic Neck Neck: Yes supple Chest Chest palpation & inspection: normal inspection of the chest Resp Effort & Inspection: normal respiratory effort Auscultation: clear to auscultation bilaterally Cardio Heart sounds: S1 normal heart sound present and S2 normal heart sound present GI Palpation (GI): Soft to palpation Skin General skin exam: no rashes or lesions noted Extrem General: Yes no clubbing, cyanosis or edema Office Procedures 6 Minute Walk Time:: 21:47 SPO2 % at rest: 95 Pulse at rest: 90 SPO2 % during excercise: 87 Pulse during excercise: 105 Distance in yards walked: 100 Shelbi Score: 6 Supplemental Oxygen: desaturated to 87% with acitivity, placed on 2 liters/pulse maintaining pox 95% with activity, [address] - 6 Minute Walk Assessment & Plan Assessment & Plan (1) Pulmonary nodule 1 cm or greater in diameter: Code(s): R91.1 - Solitary pulmonary nodule Category: Medical (2) COPD (chronic obstructive pulmonary disease): Code(s): J44.9 - Chronic obstructive pulmonary disease, unspecified Category: Medical Qualifiers: COPD type: COPD with acute exacerbation Qualified Code(s): J44.1 - Chronic obstructive pulmonary disease with (acute) exacerbation (3) Muscle ache of extremity: Code(s): M79.18 - Myalgia, other site Category: Medical Plan Wixela SINDY as needed CT chest [place] [facility] [place], with stable nodules ISS sleep with HOB elevated start oxygen with activity: The patient needs portability for out side of the home. A POC will be more effective for the patient Overnight oximetry in RA F/U 2-3 months Orders: Orders Overnight Pulse Oximetry Today Coding Level of Care Code Est Pt Level 4 (27646) Inspire Program cplx 4 or more Diagnoses Pulmonary nodule 1 cm or greater in diameter R91.1 Chronic obstructive pulmonary disease with acute exacerbation J44.1 COPD type: COPD with acute exacerbation Muscle ache of extremity M79.18 CPT Codes Coding ([id number]) Time Spent (min) 20
--- OUTSIDE RECORDS SUMMARY | 2025-01-28 11:22 | XMS_ITS | Encounter Summary ---
Author Organization [facility] Address [address] [place] [address] Care Team Providers Care Metal Reed Tuner Name Role Phone Inocencia Hdez PA-C Primary Care Provi christopher Encounter Details Date Type Department Care Team (Late st Contact Info) Description 02/24/2024 Scanned Document [facility] [address] [place] [address] Rheumatology, Scan Social History Tobacco Use Types Packs/Day Years Used Date Smoking Tobacco: Former Cigarettes 2 35 1 968 - 2002 Smokeless Tobacco: Never Alcohol Use Standard Drinks/Week Comments Not Currently 0 (1 standard drink = 0.6 oz pur e alcohol) PHQ-2 Answer Date Recorded PHQ-2 Total Score 3 01/27/2024 Comments Unknown Sex and Gender Information Value Date Recorded Sex Assigned at Not on file Legal Sex Female 10:41 AM EST Gender Identity Not on file Sexual Orientation Not on file documented as of this encounter Plan of Treatment Not on file documented as of this encounter Visit Diagnoses Not on filedocumented in this encounter Care Teams Metal Reed Tuner Relationship Specialty Start Date End Date Inocencia Hdez PA-C [address] [place] [address] PCP - General Internal Medicine 06/07/23 Delores Julio MD [facility] Physician Surgery, Vascular 05/06/23 Gregory Pollard MD Physician Endocrinology 05/06/23 Emelia Tobar Physician Gastroenterology 05/06/23 documented as of this encounter
--- OUTSIDE RECORDS SUMMARY | 2025-01-28 11:22 | XMS_ITS | Encounter Summary ---
Author Organization [facility] Address [address] [place] [id number] Care Team Providers Care Automotive Service Assistant Name Role Phone Inocencia Hdez PA-C Primary Care Provi christopher Encounter Details Date Type Department Care Team (Late st Contact Info) Description 04/13/2024 Scanned Document [facility] [address] [place] [address] Emergency Medicine, Scan Social History Tobacco Use [...] on filedocumented in this encounter Care Teams Automotive Service Assistant Relationship Specialty Start Date End Date Inocencia Hdez PA-C [address] [place] [address] PCP - General Internal Medicine 06/07/23 Delores Julio MD [facility] Physician Surgery, Vascular 05/06/23 Gregory Pollard MD Physician Endocrinology 05/06/23 Emelia Tobar Physician Gastroenterology 05/06/23 documented as of this encounter
--- OUTSIDE RECORDS SUMMARY | 2025-01-28 11:22 | XMS_ITS | Encounter Summary ---
Author Organization [facility] Address [address] [place] [address] Care Team Providers Care Manager Physical Name Role Phone Inocencia Hdez PA-C Primary Care Provi christopher Encounter Details Date Type Department Care Team (Late st Contact Info) Description 10/07/[address] [facility] [address] [place] [id number] Inocencia Hdez PA-C [address] [place] [address] Social History Tobacco Use Types Packs/Day Years [...] on filedocumented in this encounter Care Teams Manager Physical Relationship Specialty Start Date End Date Inocencia Hdez PA-C [address] [place] [address] PCP - General Internal Medicine 06/07/[address] [facility] [place] Surgery, Vascular 05/06/23 Gregory Pollard MD Physician Endocrinology 05/06/23 Emelia Tobar Physician Gastroenterology 05/06/23 documented as of this encounter
--- OUTSIDE RECORDS SUMMARY | 2025-01-28 11:22 | XMS_ITS | Continuity of Care Document ---
Author Organization [facility] Address [address] [place] [address] Phone [phone] Care Team Providers Care Stave Mill Hand Name Role Phone Inocencia Hdez Care Team Information Re ceiver [phone] Problems Active Problems Provider Date Graves' disease Gregory Pollard M.D. Onset: 0 06/05/2022 Hypothyroidism Gregory Pollard M.D. Onset: 0 06/05/2022 Social History Type Date Description Comments Sex Female Sex Unknown Tobacco Use Start: Unknown End: Unknown Quit 2005 ETOH Use Denies alcohol use Allergies and adverse reactions Description No Known Drug Allergies Medications Active Medications SIG Qnty Indications Order ing Provider Date [id number] Tablets 1 by mouth every day 90tabs Gregory Pollard M.D. 06/17/2024 Levothyroxine [id number] Tablets Take One Tablet By Mouth Every Day (Take 2 Tablets On Sundays) 102tabs Gregory Pollard M.D. 10/31/2021 Verapamil HCL GT700qa Caps ER 24HR Take One Capsule By Mouth Every Day Inocencia Hdez, P.A. [id number] Tablets Take One Tablet By Mouth AT Bedtime as Needed Inocencia Hdez P.A. Escitalopram Pvhixak35er Tablets Take One Tablet By Mouth Every Day Inocencia Hdez P.A. Losartan Potassium/Hydrochlorot -70.5mg Tablets Take One Tablet By Mouth Every [...] 0.82-1.77 TSH With Reflex To FT4 06/05/2022 [facility] Reference Lab TSH With Reflex To FT4 [...]
--- OUTSIDE RECORDS SUMMARY | 2025-01-28 11:22 | XMS_ITS | Encounter Summary ---
Author Organization [facility] Address [address] [place] [address] Care Team Providers Care Captain Of Guards Name Role Phone Inocencia Hdez PA-C Primary Care Provi christopher Encounter Details Date Type Department Care Team (Late st Contact Info) Description 04/28/2024 Scanned Document [facility] [address] [place] [address] Pulmonary, Scan Social History Tobacco Use Types [...] on filedocumented in this encounter Care Teams Captain Of Guards Relationship Specialty Start Date End Date Inocencia Hdez PA-C [address] [place] [address] PCP - General Internal Medicine 06/07/23 Delores Julio MD [facility] Physician Surgery, Vascular 05/06/23 Gregory Pollard MD Physician Endocrinology 05/06/23 Emelia Tobar Physician Gastroenterology 05/06/23 documented as of this encounter
--- OUTSIDE RECORDS SUMMARY | 2025-01-28 11:22 | XMS_ITS | Encounter Summary ---
Author Organization [facility] Address [address] [place] [address] Care Team Providers Care Carbon Cleaner Name Role Phone Inocencia Hdez PA-C Primary Care Provi christopher Encounter Details Date Type Department Care Team (Late st Contact Info) Description 04/29/2024 Scanned Document [facility] [address] [place] [address] Thoracic Surgery, Scan Social History Tobacco Use Types Packs/Day [...] on filedocumented in this encounter Care Teams Carbon Cleaner Relationship Specialty Start Date End Date Inocencia Hdez PA-C [address] [place] [address] PCP - General Internal Medicine 06/07/23 Delores Julio MD [facility] Physician Surgery, Vascular 05/06/23 Gregory Pollard MD Physician Endocrinology 05/06/23 Emelia Tobar Physician Gastroenterology 05/06/23 documented as of this encounter
--- OUTSIDE RECORDS SUMMARY | 2025-01-28 11:23 | XMS_ITS | Encounter Summary ---
Author Organization [facility] Address [address] [place] [address] Care Team Providers Care Microchip Specialist Name Role Phone Inocencia Hdez PA-C Primary Care Provi christopher Encounter Details Date Type Department Care Team (Late st Contact Info) Description 10/07/2023 Scanned Document [facility] [address] [place] [phone] Inocencia Hdez PA-C [address] [place] [address] Social History Tobacco Use Types Packs/Day Years [...] on filedocumented in this encounter Care Teams Microchip Specialist Relationship Specialty Start Date End Date Inocencia Hdez PA-C [address] [place] [address] PCP - General Internal Medicine 06/07/23 Delores Julio MD [facility] Surgery, Vascular 05/06/23 Gregory Pollard MD Physician Endocrinology 05/06/23 Emelia Tobar Physician Gastroenterology 05/06/23 documented as of this encounter
--- OUTSIDE RECORDS SUMMARY | 2025-01-28 11:23 | XMS_ITS | Encounter Summary ---
Author Organization [facility] Address [address] [place] [address] Care Team Providers Care Aircraft Machinist Helper Name Role Phone Inocencia Hdez PA-C Primary Care Provi christopher Encounter Details Date Type Department Care Team (Late st Contact Info) Description 10/26/2024 Scanned Document [facility] [address] [place] [address] Pulmonary, Scan Social History Tobacco Use Types [...] on filedocumented in this encounter Care Teams Aircraft Machinist Helper Relationship Specialty Start Date End Date Inocencia Hdez PA-C [address] [place] [address] PCP - General Internal Medicine 06/07/23 Delores Julio MD [facility] Physician Surgery, Vascular 05/06/23 Gregory Pollard MD Physician Endocrinology 05/06/23 Emelia Tobar Physician Gastroenterology 05/06/23 documented as of this encounter
--- OUTSIDE RECORDS SUMMARY | 2025-01-28 11:23 | XMS_ITS | Encounter Summary ---
Author Organization [facility] Address [address] [place] [address] Care Team Providers Care Fire Alarm Repairer Name Role Phone Inocencia Hdez PA-C Primary Care Provi christopher Encounter Details Date Type Department Care Team (Late st Contact Info) Description 10/07/2023 Scanned Document [facility] [address] [place] [phone] Inocencia Hdez PA-C [address] [place] [address] Social History Tobacco Use Types Packs/Day Years [...] on filedocumented in this encounter Care Teams Fire Alarm Repairer Relationship Specialty Start Date End Date Inocencia Hdez PA-C [address] [place] [address] PCP - General Internal Medicine 06/07/23 Delores Julio MD [facility] Physician Surgery, Vascular 05/06/23 Gregory Pollard MD Physician Endocrinology 05/06/23 Emelia Tobar Physician Gastroenterology 05/06/23 documented as of this encounter
--- OUTSIDE RECORDS SUMMARY | 2025-01-28 11:23 | XMS_ITS | Encounter Summary ---
Author Organization [facility] Address [address] [place] [address] Care Team Providers Care Security Patrol Officer Name Role Phone Inocencia Hdez PA-C Primary Care Provi christopher Encounter Details Date Type Department Care Team (Late st Contact Info) Description 08/05/2024 Scanned Document [facility] [address] [place] [address] Urgent Care, Scan Social History Tobacco Use Types [...] on filedocumented in this encounter Care Teams Security Patrol Officer Relationship Specialty Start Date End Date Incoencia Hdez PA-C [address] [place] [address] PCP - General Internal Medicine 06/07/23 Delores Julio MD [facility] Physician Surgery, Vascular 05/06/23 Gregory Pollard MD Physician Endocrinology 05/06/23 Emelia Tobar Physician Gastroenterology 05/06/23 documented as of this encounter
--- OUTSIDE RECORDS SUMMARY | 2025-01-28 11:23 | XMS_ITS | Clinical Summary ---
Author Organization [facility] Address [address] [place] [address] Care Team Providers Care Space Buyer Name Role Phone Inocencia Hdez PA-C Primary Care Provi christopher Allergies No known active allergies Medications Aspirin Low Dose 81 MG chewable tablet Chew 1 tablet (81 mg total) daily. chew and swallow 05/16/19 24 Active levothyroxine (SYNTHROID, LEVOTHROID) 112 MCG tablet Take 1 tablet (112 mcg total) by mouth daily. 03/13/19 24 Active calcium carbonate (OS-CHIP) 600 MG tablet Take 1 tablet (600 mg total) by mouth 2 times a day. Active multivitamin Tab tablet Take 1 tablet by mouth daily. Active ascorbic acid (VITAMIN C) 500 MG tablet Take 1 tablet (500 mg total) by mouth daily. Active LORazepam (ATIVAN) 0.5 MG tabletIndications: Anxiety Take 1 tablet (0.5 mg total) by mouth nightly as needed for anxiety. 30 tablet 08/04/19 25 Active atorvastatin (LIPITOR) 80 MG tabletIndications: Hyperlipidemia, unspecified hyperlipidemia type TAKE ONE TABLET BY MOUTH EVERY DAY 90 tablet 1 09/22/19 25 Active losartan-hydroCHLO ROthiazide (HYZAAR) 100-12.5 MG per tabletIndications: Primary hypertension TAKE ONE TABLET BY MOUTH EVERY DAY 90 tablet 3 10/07/19 25 Active verapamil (CALAN-SR) 240 MG ER tabletIndications: Primary hypertension Take 1 tablet (240 mg total) by mouth daily. Swallow whole. Take with food. 90 tablet 3 11/26/19 25 Active metoPROLOL SUCCINATE (TOPROL-XL) 25 MG 24 hr tabletIndications: Primary hypertension TAKE ONE TABLET BY MOUTH EVERY DAY 90 tablet 1 12/21/19 25 Active ezetimibe (ZeTIA) 10 MG tabletIndications: Other hyperlipidemia TAKE ONE TABLET BY MOUTH EVERY DAY 90 tablet 1 12/21/19 25 Active escitalopram (LEXAPRO) 20 MG tabletIndications: Anxiety TAKE ONE TABLET BY MOUTH EVERY DAY 90 tablet 3 01/26/20 25 Active escitalopram (LEXAPRO) 20 MG tabletIndications: Anxiety Take 1 tablet (20 mg total) by mouth daily. 90 tablet 3 02/12/20 24 025 Discontinued Active Problems Problem Noted Date Diagnosed Date Primary insomnia 08/03/2024 Assessment & Plan (08/03/2024 9:43 AM EDT): Stable with Lexapro 20 mg daily. Will put his prescription for lorazepam 1/2 mg tablet for patient to take at night as needed. She will discard the mirtazapine. CSA filled out. Orders: LORazepam (ATIVAN) 0.5 MG tablet; Take 1 tablet (0.5 mg total) by mouth nightly as needed for anxiety. Primary osteoarthritis involving multiple joints 08/03/2024 Assessment & Plan (08/03/2024 9:43 AM EDT): Cortisone injection with minimal relief. Patient takes Tylenol or Advil as needed. Moderate aortic stenosis 06/08/2023 Overview (06/08/2023): ECHO 2021 Assessment & Plan (08/03/2024 9:43 AM EDT): Patient has history of mild aortic stenosis. Echo ordered at patient's last physical in January 2024. Patient had echo back in April 2024 which showed moderate aortic stenosis. Patient has not seen cardiology. Patient does get some dyspnea on exertion but attributes to her emphysema. Has an appointment with cardiology in September. Family history of colon cancer 06/08/2023 Overview (06/08/2023): Last colo 2018- was due 2022 Pulmonary nodule 06/07/2023 Assessment & Plan (08/03/2024 9:43 AM EDT): Following with pulmonary and thoracic surgery. Patient due for 6-month follow-up CT of the chest in October. Patient doing fine off the [place]ixela. Thing has been stable. Emphysema of lung 06/07/2023 Assessment & Plan (08/03/2024 9:43 AM EDT): Following with pulmonary and thoracic surgery. Patient due for 6-month follow-up CT of the chest in October. Patient doing fine off the Wixela. Thing has been stable. History of tobacco use 06/07/2023 HTN (hypertension) 06/07/2023 Assessment & Plan (08/03/2024 9:43 AM EDT): Compliant with blood pressure medication. Blood pressure is at goal. Major depressive disorder, r ecurrent episode, in partial remission 06/07/2023 Assessment & Plan (08/03/2024 9:43 AM EDT): Stable with Lexapro 20 mg daily. Will put his prescription for lorazepam 1/2 mg tablet for patient to take at night as needed. She will discard the mirtazapine. CSA filled out. Orders: LORazepam (ATIVAN) 0.5 MG tablet; Take 1 tablet (0.5 mg total) by mouth nightly as needed for anxiety. Hypothyroidism 06/07/2023 Hyperlipidemia 06/07/2023 GERD (gastroesophageal reflux disease) Overview (06/08/2023): Last EGD 2017 IFG (impaired fasting glucose) 06/07/2023 Peripheral neuropathy 06/07/2023 Anxiety 06/07/2023 Assessment & Plan (08/03/2024 9:43 AM EDT): Stable with Lexapro 20 mg daily. Will put his prescription for lorazepam 1/2 mg tablet for patient to take at night as needed. She will discard the mirtazapine. CSA filled out. Orders: LORazepam (ATIVAN) 0.5 MG tablet; Take 1 tablet (0.5 mg total) by mouth nightly as needed for anxiety. PAD (peripheral artery disease) 06/07/2023 Overview (06/09/2023): angioplasty and stenting of right SFA and AK popliteal 06/25/2022 for right sided short distance claudication. Follows with [facility] vascular. Immunizations Immunization Administration Dates Next Due Influenza High-Dose Trivalen [...] 1 968 - 2002 Smokeless Tobacco: Never Tobacco Cessation:Counseling Given: Not [...] Sign Reading Time Taken Comments Blood Pressure 128/68 08/03/2024 8:46 AM EDT Pulse 63 08/03/2024 8:46 AM EDT Temperature 36.3 C (97.3 F) 08/03/2024 8:46 AM EDT Respiratory Rate 17 08/03/2024 8:46 AM EDT Oxygen Saturation 98% 08/03/2024 8:46 AM EDT Inhaled Oxygen Concentration - - Weight 80.8 kg (178 lb 3.2 oz) 08/03/2024 8:46 A M EDT Height 162.6 cm (5' 4 ) 08/03/2024 8:46 AM EDT Body Mass Index 30.59 08/03/2024 8:46 AM EDT Plan of Treatment Health Maintenance Due Date Last Done Comments Advance Care Planning 1945 Physical 06/03/1961 DXA Bone Density (Females,Ages 65 and older) 06/03/2008 Zoster (Shingles) Vaccine (3 of 3) 12/23/2008 10/28/2008, 10/28/2008 DTaP/Tdap/Td Vaccines (1 - Tdap) 04/07/2010 04/06/2010, 04/06/2010 RSV Vaccine 50 years and older and Patients (1 - 1-dose 75+ series) 06/03/2018 Influenza Vaccine 10/08/2024 01/27/2024, , 12/15/2019, Additional history exists COVID-19 Vaccine ( - season) 2024 07/13/2020, 06/22/2020 Annual Wellness Visit 01/27/2025 01/27/2024 Pneumococcal Vaccines 50+ Completed 11/22/2014, Hepatitis B Vaccines Aged Out No long er eligible based on patient's age to complete this topic Insurance [facility] MEDIC[facility] Care Teams Space Buyer Relationship Specialty Start Date End Date Inocencia Hdez PA-C [address] [place] [address] PCP - General Internal Medicine 06/07/23 Delores Julio MD [facility] Physician Surgery, Vascular 05/06/23 Gregory Pollard MD Physician Endocrinology 05/06/23 Emelia Tobar Physician Gastroenterology 05/06/23
--- OUTSIDE RECORDS SUMMARY | 2025-01-28 11:23 | XMS_ITS | Encounter Summary ---
Author Organization [facility] Address [address] [place] [address] Care Team Providers Care Grades 7 8 Tutor Name Role Phone Inocencia Hdez PA-C Primary Care Provi christopher Encounter Details Date Type Department Care Team (Late st Contact Info) Description 10/20/2024 Scanned Document [facility] [address] [place] [address] Pulmonary, Scan Social History Tobacco Use Types [...] on filedocumented in this encounter Care Teams Grades 7 8 Tutor Relationship Specialty Start Date End Date Inocencia Hdez PA-C [address] [place] [address] PCP - General Internal Medicine 06/07/23 Delores Julio MD [facility] Physician Surgery, Vascular 05/06/23 Gregory Pollard MD Physician Endocrinology 05/06/23 Emelia Tobar Physician Gastroenterology 05/06/23 documented as of this encounter
--- OUTSIDE RECORDS SUMMARY | 2025-01-28 11:23 | XMS_ITS | Encounter Summary ---
Author Organization [facility] Address [address] [place] [address] Care Team Providers Care Child Support Agent Name Role Phone Inocencia Hdez PA-C Primary Care Provi christopher Encounter Details Date Type Department Care Team (Late st Contact Info) Description 10/07/2023 Scanned Document [facility] at [facility] [address] [place] [phone] Inocencia Hdez PA-C [address] [place] [address] Social History Tobacco Use Types Packs/Day Years [...] on filedocumented in this encounter Care Teams Child Support Agent Relationship Specialty Start Date End Date Inocencia Hdez PA-C [address] [place] [address] PCP - General Internal Medicine 06/07/23 Delores Julio MD [facility] Physician Surgery, Vascular 05/06/23 Gregory Pollard MD Physician Endocrinology 05/06/23 Emelia Tobar Physician Gastroenterology 05/06/23 documented as of this encounter
--- OUTSIDE RECORDS SUMMARY | 2025-01-28 11:23 | XMS_ITS | Encounter Summary ---
Author Organization [facility] Address [address] [place] [address] Care Team Providers Care Paper Conservator Name Role Phone Pcp, No Primary Care Provider Inocencia Gilliland PA-C Primary Care Provi christopher Encounter Details Date Type Department Care Team (Late st Contact Info) Description 05/29/[address] [facility] PULMONOLGY SCAN Pulmonary, Scan Social History Tobacco Use Types Packs/Day Years Used Date Smoking Tobacco: Never Assessed Comments Unknown Sex and Gender Information Value Date Recorded Sex Assigned at Not on file Legal Sex Female 10:41 AM EST Gender Identity Not on file Sexual Orientation Not on file documented as of this encounter Plan of Treatment Not on file documented as of this encounter Visit Diagnoses Not on filedocumented in this encounter Care Teams Paper Conservator Relationship Specialty Start Date End Date Pcp, No PCP - General General Medicine 04/08/23 06/06/23 Inocencia Hdez PA-C [address] [place] [address] PCP - General Internal Medicine 06/07/23 Delores Julio MD [facility] Physician Surgery, Vascular 05/06/23 Gregory Pollard MD Physician Endocrinology 05/06/23 Emelia Tobar Physician Gastroenterology 05/06/23 documented as of this encounter
--- OUTSIDE RECORDS SUMMARY | 2025-01-28 11:23 | XMS_ITS | Encounter Summary ---
Author Organization [facility] Address [address] [place] [address] Care Team Providers Care Press Bucker Name Role Phone Inocencia Hdez PA-C Primary Care Provi christopher Encounter Details Date Type Department Care Team (Late st Contact Info) Description 10/07/2023 Scanned Document [facility] at [facility] [address] [place] [phone] Inocencia Hdez PA-C [address] [place] [address] Social History Tobacco Use Types Packs/Day Years [...] on filedocumented in this encounter Care Teams Press Bucker Relationship Specialty Start Date End Date Inocencia Hdez PA-C [address] [place] [address] PCP - General Internal Medicine 06/07/23 Delores Julio MD [facility] Physician Surgery, Vascular 05/06/23 Gregory Pollard MD Physician Endocrinology 05/06/23 Emelia Tobar Physician Gastroenterology 05/06/23 documented as of this encounter
--- OUTSIDE RECORDS SUMMARY | 2025-01-28 11:23 | XMS_ITS | Encounter Summary ---
Author Organization [facility] Address [address] [place] [address] Care Team Providers Care Pack Press Operator Name Role Phone Inocencia Hdez Primary Care Provider [phone] Encounter Details Date Type Department Care Team (Late st Contact Info) Description 12/28/2024 Results Follow-Up [facility] Cardiology [address] [place] [address] Nataliia Curtis NP [address] [place] [address] [address] [place] [phone] Social History Tobacco Use Types Packs/Day Years Used Date Smoking Tobacco: Former Cigarettes Smokeless Tobacco: Never Alcohol Use Standard Drinks/Week [...] Care Team (Late st Contact Info) Description 11/30/2025 10:00 AM EDT Ancillary Procedure [facility] [address] [place] [phone] documented as of this encounter Visit Diagnoses Not on filedocumented in this encounter Care Teams Pack Press Operator Relationship Specialty Start Date End Date Inocencia Hdez PA [address] [place] [address]CP - General Physician Lane Marker Installer 12/03/24 documented as of this encounter
--- OUTSIDE RECORDS SUMMARY | 2025-01-28 11:23 | XMS_ITS | Encounter Summary ---
Author Organization [facility] Address [address] [place] [id number] Care Team Providers Care Employee Communications Manager Name Role Phone Inocencia Hdez PA-C Primary Care Provi christopher Encounter Details Date Type Department Care Team (Late st Contact Info) Description 06/16/2023 Scanned Document [address] [place] [phone] Primary Care, Scan Social History Tobacco Use [...] on filedocumented in this encounter Care Teams Employee Communications Manager Relationship Specialty Start Date End Date Inocencia Hdez PA-C [address] [place] [address] PCP - General Internal Medicine 06/07/23 Delores Julio MD [facility] Physician Surgery, Vascular 05/06/23 Gregory Pollard MD Physician Endocrinology 05/06/23 Emelia Tobar Physician Gastroenterology 05/06/23 documented as of this encounter
--- OUTSIDE RECORDS SUMMARY | 2025-01-28 11:23 | XMS_ITS | Encounter Summary ---
Author Organization [facility] Address [address] [place] [address] Care Team Providers Care Project Associate Name Role Phone Inocencia Hdez PA-C Primary Care Provi christopher Encounter Details Date Type Department Care Team (Late st Contact Info) Description 07/25/2023 Scanned Document [facility] PULMONOLGY SCAN Pulmonary, Scan Social History [...] on filedocumented in this encounter Care Teams Project Associate Relationship Specialty Start Date End Date Inocencia Hdez PA-C [address] [place] [address] PCP - General Internal Medicine 06/07/23 Delores Julio MD [facility] Physician Surgery, Vascular 05/06/23 Gregory Pollard MD Physician Endocrinology 05/06/23 Emelia Tobar Physician Gastroenterology 05/06/23 documented as of this encounter
--- OUTSIDE RECORDS SUMMARY | 2025-01-28 11:23 | XMS_ITS | Clinical Summary ---
Author Organization [facility] Address [address] [place] [address] Phone Care Team Providers Care Dumping Machine Operator Name Role Phone Inocencia Hdez Primary Care Provider [phone] [phone] Allergies No known active allergies Medications aspirin [...] mouth 1 (one) time each day. Active Active Problems Problem Noted Date Diagnosed Date Coronary artery calcification 12/03/2024 Assessment & Plan (12/03/2024 10:06 AM EDT): The patient was noted to have coronary artery calcifications noted on the chest CT scan from April 2024. An ischemic evaluation was completed in October 2024 with a nuclear stress test which was noted to be normal. Specifically, the nuclear stress test showed normal myocardial perfusion (no evidence of ischemia or infarct), no ischemic ECG changes with regadenoson infusion, TID of 1.2 which is within the normal range for a regadenoson nuclear stress test, and mild coronary artery calcifications. ' On today's visit, the patient denies any symptoms of chest discomfort. As such, no further cardiac testing is needed at this point. The patient will continue her current medical therapy with aspirin, atorvastatin, Zetia, verapamil, and metoprolol. Nonrheumatic aortic valve stenosis 09/20/2024 Assessment & Plan (12/03/2024 10:06 AM EDT): The patient has symptoms of chronic exertional dyspnea. She has a history of COPD and is being followed by the pulmonology service. From a cardiac standpoint, the patient has a history of aortic valve stenosis and coronary artery calcifications. Nevertheless, recent nuclear stress test done in October 2024 did not show any evidence of ischemia on the myocardial perfusion imaging. Also, recent echocardiogram done in October 2024 showed a normal LVEF, normal RV function, and moderate aortic valve stenosis. It is unlikely that her symptoms of dyspnea are cardiogenic in nature given absence of ischemia on the nuclear stress test, absence of any evidence of severe valvular disease (the patient's moderate aortic valve stenosis is unlikely to be the cause of her symptoms), normal LVEF noted on echocardiogram, and normal RV function noted on her echocardiogram. The patient's symptoms of dyspnea are likely secondary to her underlying COPD. Would recommend for the patient to continue to follow-up with her clerical warehouse worker regarding her COPD. From a cardiac standpoint, we will proceed with a follow-up echocardiogram in 1 year for reevaluation of her aortic valve stenosis. Orders: Transthoracic echocardiogram (TTE) complete with PRN contrast, bubble, strain, and 3D order panel; Future perflutren lipid microsphere (DEFINITY) 1.3 mL in sodium chloride 0.9% 8.7 mL injection Assessment & Plan (09/21/2024 9:53 AM EDT): [...] right sided short distance claudication. Follows with [facility] vascular. HTN (hypertension) 02/09/2020 Assessment & Plan (09/21/2024 9:53 AM EDT): The patient has a history of arterial hypertension. The patient's blood pressure today was noted to be well controlled. We'll continue the current antihypertensive medication regimen. Hyperlipidemia 02/09/2020 Assessment & Plan (12/03/2024 10:06 AM EDT): The patient has a history of hyperlipidemia. The patient is currently on atorvastatin 80 mg orally daily and Zetia 10 mg orally daily. We will order a new lipid panel to evaluate the patient's current lipid control and determine if any adjustment are needed in the lipid lowering therapy. Orders: Lipid panel; Future Assessment & Plan (09/21/2024 9:53 AM EDT): The patient has a history of hyperlipidemia. She also has a history of lower extremity PAD, coronary artery calcifications, and carotid artery stenosis. The patient is currently on Zetia 10 mg orally daily and atorvastatin 80 mg orally daily. Last lipid panel showed an adequate cholesterol control. Will recommend to continue her current medication regimen. Resolved Problems Problem Noted Date Diagnosed Date Resolved Date Dyspnea on exertion 09/21/2024 12/04/19 Assessment & Plan (09/21/2024 9:53 AM EDT): [...] in sodium chloride 0.9% 8.7 mL injection Encounters Date Type Department Care Team Description 12/28/2024 Results Follow-Up [facility] [address] [place] [address] Nataliia Curtis NP 12/03/2024 9:50 AM EDT Office Visit [facility] Cardiology [facility] [address] [place] [address] Jourdan Mathews MD Nonrheumatic aortic valve stenosis (Primary Dx); Pure hypercholesterolemia; Coronary artery calcification 11/02/2024 Telephone [facility] Cardiology [facility] [address] [place] [address] Jourdan Mathews MD from Last 3 Months Surgical History Surgery [...] DX:COPD (chronic obstructive pulmonary disease) with emphysema ([facility]) GERD (gastroesophageal reflux disease) 02/09/2020 DX:GERD (gastroesophageal reflux disease) Fatty liver 02/09/2020 DX:Fatty liver Hypothyroidism 02/09/2020 DX:Hypothyroidis m Graves disease 02/09/2020 DX:Graves diseas e Hyperlipidemia 02/09/2020 DX:Hyperlipidemi a Peripheral neuropathy 02/09/2020 DX:Periphe ral neuropathy HTN (hypertension) 02/09/2020 DX:HTN (hyper tension) Major depressive disorder, r ecurrent episode, in partial remission (CMS/HCC V24) 02/09/2020 DX:Major depressive disorder , recurrent episode, in partial remission ([facility]) Family History Medical History Relation Name Comments [...] Sign Reading Time Taken Comments Blood Pressure 118/60 12/03/2024 9:39 AM EDT Pulse 68 12/03/2024 9:39 AM EDT Temperature - - Respiratory Rate - - Oxygen Saturation 96% 12/03/2024 9:39 AM EDT Inhaled Oxygen Concentration - - Weight 78 kg (172 lb) 12/03/2024 9:39 AM EDT Height 162.6 cm (5' 4 ) 12/03/2024 9:39 AM EDT Body Mass Index 29.52 12/03/2024 9:39 AM EDT Plan of Treatment Upcoming Encounters Date Type Department Care Team (Late st Contact Info) Description 11/30/2025 10:00 AM EDT Ancillary Procedure [facility] - [facility] [address] [place] [address] Health Maintenance Due Date Last Done Comments DTaP,Tdap,and Td Vaccines (2 - Td or Tdap) 04/06/2020 04/06/2010 Falls Risk Assessment 02/10/2022 Medicare Annual Wellness Visit 02/10/2022 Osteoporosis Screening (Bone Density Screening) 02/10/2022 Social Influencers of Health Screening 02/10/2022 Hypertension/CHF/CAD Annual BMP Blood Test 02/20/2022 Depression Screening 03/10/2024 COVID-19 Vaccine ( season) 2024 01/17/2022, 07/13/2020, 06/22/2020 Cholesterol Screening (Lipid Panel) 12/08/2029 12/08/2024 Pneumococcal Vaccine: 50+ Years Completed 11/22/2014, 09/23/2008 RSV Immunization Adult Patients Completed 08/04/2024 Influenza Vaccine Completed 11/12/2024, , 12/20/2022, Additional history exists Zoster Vaccines Completed 11/12/2024, 07/09, 10/28/2008 HIB Vaccines Aged Out No longer [...] Procedure Name Priority Date/Time Associated Diagnosis Comments LIPID PANEL Routine 12/08/2024 9:30 AM EDT Pure hypercholesterolemia from Last 3 Months Results * Lipid panel (12/08/2024 9:30 AM EDT) Cholesterol Total 127 100 - 199 mg/dL [facility] Triglycerides 107 0 - 149 mg/dL [facility] 1 HDL Cholesterol 51 >39 mg/dL [facility] 1 VLDL Cholesterol Calculated 20 5 - 40 mg/dL [facility] 1 LDL Chol Calc (NIH) 56 0 - 99 mg/dL [facility] 1 Blood Venous blood specimen / Unknown 12/08/2024 9:30 AM EDT 12/08/2024 Narrative [facility] 1 - 12/09/2024 1:06 AM EDT Performed at: 01 - [facility] [address] [id number] Communications Department Head: Michelle Jeffery MD, Phone: [phone] Jourdan Mathews MD LAB BLOOD ORDERABLES F inal Result [facility] 1 from Last 3 Months Insurance [employer] MED[employer] Care Teams Dumping Machine Operator Relationship Specialty Start Date End Date Inocencia Hdez PA [address] [place] [address] PCP - General Physician Cavity Pump Operator 12/03/24
--- OUTSIDE RECORDS SUMMARY | 2025-01-28 11:23 | XMS_ITS | Encounter Summary ---
Author Organization [facility] Address [address] [place] [address] Care Team Providers Care Spring Salvage Worker Name Role Phone Inocencia Hdez PA-C Primary Care Provi christopher Encounter Details Date Type Department Care Team (Late st Contact Info) Description 01/01/2024 Scanned Document [facility] [address] [place] [address] Pulmonary, Scan Social History Tobacco Use Types [...] on filedocumented in this encounter Care Teams Spring Salvage Worker Relationship Specialty Start Date End Date Inocencia Hdez PA-C [address] [place] [address] PCP - General Internal Medicine 06/07/23 Delores Julio MD [facility] Physician Surgery, Vascular 05/06/23 Gregory Pollard MD Physician Endocrinology 05/06/23 Emelia Tobar Physician Gastroenterology 05/06/23 documented as of this encounter
--- OUTSIDE RECORDS SUMMARY | 2025-01-28 11:23 | XMS_ITS | Patient Health Record ---
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 Plan Of Treatment Pending Test Test Name Order Date MRI : Ankle, right 06/28/2015 MRI : Foot, left 06/28/2015 [id number] NAIL, 1-5 03/01/2015,[id number] TENDON SHEATH/LIGAMENT 1 05/02/2014,[id number] TENDON SHEATH/LIGAMENT 0 04/12/201547826,[id number] TENDON SHEATH/LIGAMENT 0 05/11/2015 Insurance Providers Payer Name Payer Address Payer Phone Subscriber Number Group Number Insured Name Patient Relationship to Insured Coverage Start Date Coverage End Date [employer] [place] [employer] Ad[employer]age One [facility] [address] [facility] [place] [id number] [phone] [id number] Leti Puga Self - patient is the insured Medical (General) History Medical History History ICD Code Cholesterol High blood pressure Neuropathy Thyroid disorder Measles Mumps Chicken pox Surgical History Surgery Date(Month/Year) cataract surgery back surgery 12/25/2009 eye surgery left and right ( eye lids) 0 11/03/2015 bladder mesh 01/10/2019
[2025-01-30 21:45] VITALS: PULSE 90; O2SAT 95
== END 2025-01-28 11:28 | disposition home or self-care (01) ==
LOC: HO.HPS 10:40
PROVIDERS: PCP Physician Assistant Medical; Visit Provider Hospitalist
DX: R91.1 Solitary pulmonary nodule (principal); J44.1 Chronic obstructive pulmonary disease with (acute) exacerbation; M79.18 Myalgia, other site; Z45.42 Encounter for adjustment and management of neurostimulator; G47.33 Obstructive sleep apnea (adult) (pediatric)
CPT/HCPCS: 94618; 95977; 99214

== ENCOUNTER → 2025-01-28 10:39 | Outpatient (BNVA) | payer MEDICARE, SELFPAY | PROVIDERS: PCP Physician Assistant Medical; Visit Provider Hospitalist | DX: R07.81 Pleurodynia (principal); R91.1 Solitary pulmonary nodule; J44.9 Chronic obstructive pulmonary disease, unspecified | CPT/HCPCS: 94618; 95977; 99212 ==